=== PATIENT | male | born 1960 | race Two or more races ===

== ENCOUNTER 2017-07-16 00:10 | Emergency (ER) | payer SELFPAY ==
[2017-07-16 01:05] LABS: BASOPHILE ABSOLUTE 2.5 Th/cumm (0-0.2); EOSINOPHILE ABSOLUTE 0.1 Th/cmm (0.1-0.4); HEMOGLOBIN 10.6 gm/dL (12-16); LYMPHOCYTE ABSOLUTE 5.3 Th/cmm (1.5-3.0); MANUAL DIFF REQUIRED? YES; MEAN CORPUSCULAR HEMOGLOBIN 29.6 pg (26.0-30.0); MEAN CORPUSCULAR HGB CONC 34.1 pg (28.0-36.0); MEAN PLATELET VOLUME 8.9 fl; MONOCYTE ABSOLUTE 0.8 Th/cmm (0.3-1.0); NEUTROPHILE ABSOLUTE 1.3 Th/cmm (1.8-8.0); PLATELET COUNT 210 Th/cmm (150-400); RED BLOOD COUNT 3.56 Mil/cmm (4.30-5.70); RED CELL DISTRIBUTION WIDTH 18.4 % (11.5-20.0)
[2017-07-16 01:12] LABS: AMPHETAMINE URINE NEGATIVE (NEGATIVE); BARBITURATES URINE NEGATIVE (NEGATIVE); BENZODIAZEPINES QUAL URINE NEGATIVE (NEGATIVE); CANNABINOID THC NEGATIVE (NEGATIVE); COCAINE METABOLITE QUAL URINE NEGATIVE (NEGATIVE); METHADONE URINE NEGATIVE (NEGATIVE); METHAMPHETAMINES QUAL URINE NEGATIVE (NEGATIVE); OPIATES (MORPHINE) QUAL. URINE NEGATIVE (NEGATIVE); PHENCYCLIDINE (PCP) URINE NEGATIVE (NEGATIVE); TRICYCLICS (TCA) QUAL. URINE NEGATIVE (NEGATIVE)
[2017-07-16 01:16] LABS: ANION GAP 14.6 (7.0-16.0); BUN - UREA NITROGEN 7 mg/dL (7-25); CALCIUM SERUM 8.9 mg/dL (8.6-10.3); CARBON DIOXIDE 21.8 mEq/L (21.0-31.0); CHLORIDE 103 mEq/L (98-107); CREATININE - SERUM 0.4 mg/dL (0.7-1.3); GFR AFRICAN-AMERICAN > 60.0 ml/min (>90); GFR NON AFRICAN-AMERICAN > 60.0 ml/min; GLUCOSE 99 mg/dL (70-105); POTASSIUM SERUM 3.4 mEq/L (3.5-5.1); SODIUM SERUM 136 mEq/L (136-145)
--- NOTE | 2017-07-16 01:19 | ED Physician Chart ---
ED Chief Complaint/HPI - Patient Information Date Seen:: 07/16/17 Time Seen:: 00:25 Chief Complaint:: LEFT RIB PAIN History of Present Illness:: THIS IS A 56 YO ALCOHOLIC MALE WHO STATES THAT HE FELL FOUR DAYS AGO AND NOW IS CONCERNED ABOUT SOME RIB PAIN ON HIS LEFT SIDE. THE PATIENT DENIES ANY OTHER INJURIES. HE SMELLS LIKE ALCOHOL AND IS UNKEPT. HE DENIES LOC, HEADACHE, SOB, NAUSEA AND CHEST PAIN. Allergies:: Allergies Allergy/AdvReac Type Severity Reaction Status Date / Time No Known Allergies Allergy Verified 07/16/17 00:28 Vitals:: Vital Signs - 8 hr 07/16/17 00:10 Temp 98.5 F HR 100 RR 18 BP 125/68 O2 Sat % 100 Historian:: Patient Review:: Nurse's Note Reviewed ED Review of Systems - Review of Systems General/Constitutional: No fever, No chills, No weight loss, No weakness, No diaphoresis, No edema, No loss of appetite Skin: No skin lesions, No rash, No bruising Head: No headache, No light-headedness Eyes: No loss of vision, No pain, No diplopia ENT: No earache, No nasal drainage, No sore throat, No tinnitus Neck: No neck pain, No swelling, No thyromegaly, No stiffness, No mass noted Cardio Vascular: No chest pain, No palpitations, No PND, No orthopnea, No edema Pulmonary: No SOB, No cough, No sputum, No wheezing GI: No nausea, No vomiting, No diarrhea, No pain, No melena, No hematochezia, No constipation, No hematemesis G/U: No dysuria, No frequency, No hematuria Musculoskeletal: No bone or joint pain, No back pain, No muscle pain, Other ( LEFT CHEST WALL TENDERNESS ON THE LEFT SEVEN RIB AREA, NO PAIN ON DEEP BREATHING.) Endocrine: No polyuria, No polydipsia Psychiatric: No prior psych history, No depression, No anxiety, No suicidal ideation Hematopoietic: No bruising, No lymphadenopathy Allergic/Immuno: No urticaria, No angioedema Neurological: No syncope, No focal symptoms, No weakness, No paresthesia, No headache, No seizure, No dizziness, No confusion, No vertigo ED Past Medical History - Past Medical History Family History: None Social History: Non Smoker, Alcohol, No Drug Use, Homeless Surgical History: None Psychiatricy History: None Medication: Reviewed Family Medical History - Family Member Mother History Unknown: Yes ED Physical Exam - Physical Examination General/Constitutional: Awake, Well-developed, well-nourished, Alert, No distress, GCS 15, Non-toxic appearing (APPEARS TOXIC FROM ALCOHOL), Ambulatory Head: Atraumatic Eyes: Lids, conjuctiva normal, PERRL, EOMI Skin: Nl inspection, No rash, No skin lesions, No ecchymosis, Well hydrated, No lymphadenopathy ENMT: External ears, nose nl, Nasal exam nl, Lips, teeth, gums nl Neck: Nontender, Full ROM w/o pain, No JVD, No nuchal rigidity, No bruit, No mass, No stridor Respiratory: Nl effort/Exclusion, Clear to Auscultation, No Wheeze/Rhonchi/Rales Cardio Vascular: RRR, No murmur, gallop, rubs, NL S1 S2 Other Cardio Vascular comments:: TENDERNESS IN THE LEFT 7TH RIB AREA WITH GOOD AIR MOVEMENT WITHOUT PAIN. GI: No tenderness/rebounding/guarding, No organomegaly, No hernia, Normal BS's, Nondistended, No mass/bruits, No McBurney tenderness : No CVA tenderness Extremities: No tenderness or effusion, Full ROM, normal strength in all extremities, No edema, Normal digits & nails Neuro/Psych: Alert/oriented, DTR's symmetric, Normal sensory exam, Normal motor strength, Judgement/insight normal, Mood normal, Normal gait, No focal deficits Misc: Normal back, No paraspinal tenderness ED Labs/Radiology/EKG Results - Lab Results Results: Laboratory Tests 07/16/17 07/16/17 00:45 00:45 WBC 10.0 RBC 3.56 L Hgb 10.6 L Hct 31.0 L MCV 87.0 MCH 29.6 MCHC Differential 34.1 RDW 18.4 Plt Count 210 MPV 8.9 Urine Opiates Screen NEGATIVE Urine Methadone Screen NEGATIVE Ur Barbiturates Screen NEGATIVE Ur Tricyclics Screen NEGATIVE Ur Phencyclidine Scrn NEGATIVE Amphetamines Screen NEGATIVE U Methamphetamines Scrn NEGATIVE U Benzodiazepines Scrn NEGATIVE U Cocaine Metab Screen NEGATIVE U Cannabinoids Screen NEGATIVE ED Assessment - Assessment General Assessment: CONTUSION OF THE LEFT CHEST WALL ED Septic Shock - . Is Septic Shock (SBP<90, OR Lactate>4 mmol\L) present?: No - <6hrs of presentation: Vital Signs: Vital Signs - 8 hr 07/16/17 00:10 Temp 98.5 F HR 100 RR 18 BP 125/68 O2 Sat % 100 ED Reassessment (Disposition) - Diagnosis Diagnosis:: CONTUSION OF THE LEFT CHEST WALL ALCOHOL INTOXICATION - Aftercare/Follow up Instructions Aftercare/Follow-Up Instructions:: Counseled pt regarding lab results/diagnosis & need follow up, Refer to Discharge Instructions, Counseled pt & family regarding lab results/diagnosis & need follow up - Patient Disposition Discharge/Transfer:: Home Condition at Disposition:: Improved ED Discharge Plan - Patient Disposition Admit/Discharge/Transfer: PT DISCHARGED HOME Condition at Disposition: Improved
[2017-07-16] MEDS ORDERED: Potassium Chloride 20 mEq ER Tab PO ONE (01:24)
[2017-07-16] MEDS ORDERED: Potassium Chloride Elixir 20 mEq /15 mL UDC ONE (01:28)
[2017-07-16] MEDS: Potassium Chloride Elixir 20 mEq /15 mL UDC PO ONE (01:28)
[2017-07-16 01:30] LABS: BAND NEUTROPHILE 1 % (0-10); LYMPHOCYTE 54 % (20-50); MONOCYTE 6 % (2-10); NEUTROPHILS 34 % (40-80); TOTAL CELLS COUNTED 100
[2017-07-16 01:31] LABS: ATYPICAL LYMPH 1 %; BASOPHIL 1 % (0-3); EOSINOPHIL 3 % (0-5); HYPOCHROMIA 1+; PLATELET ESTIMATE ADEQUATE (NORMAL)
[2017-07-16 01:32] LABS: ANISOCYTOSIS 1+
== END 2017-07-16 02:25 | disposition home or self-care (01) ==
LOC: ER 00:10
DX: S20.212A Contusion of left front wall of thorax, initial encounter (principal); Z59.0 Homelessness; X58.XXXA Exposure to other specified factors, initial encounter; Y93.89 Activity, other specified; Y92.89 Other specified places as the place of occurrence of the external cause; Y99.8 Other external cause status
CPT/HCPCS: 36415-UA; 80048-TC; 80307; 80320-TC; 85007-TC; 85027-TC; 93005

== ENCOUNTER 2018-06-23 16:25 | Inpatient (IN) | payer SELFPAY ==
[2018-06-23 16:51] LABS: ALLEN TEST Positive; pH 7.32 (7.35-7.45)
--- NOTE | 2018-06-23 16:54 | ED Physician Chart ---
ED Chief Complaint/HPI - Patient Information Date Seen:: 06/23/18 Time Seen:: 16:35 Chief Complaint:: acute shortness of breath History of Present Illness:: this is a chronic alcoholic bib ems on bi-pap with severe ascites and distended abdomen. Allergies:: Allergies Allergy/AdvReac Type Severity Reaction Status Date / Time No Known Allergies Allergy Verified 06/23/18 16:42 Vitals:: Vital Signs - 8 hr 06/23/18 16:33 Temp 97 F HR 92 RR 22 BP 133/79 O2 Sat % 100 Historian:: Patient, EMS, Medical Records Review:: Nurse's Note Reviewed, Old Chart Reviewed, EMS run form Reviewed ED Review of Systems - Review of Systems General/Constitutional: No fever, No chills, Weight loss, Weakness, No diaphoresis, Edema, No loss of appetite Skin: Skin lesions, No rash, No bruising Head: No headache, No light-headedness Eyes: No loss of vision, No pain, No diplopia ENT: No earache, No nasal drainage, No sore throat, No tinnitus Neck: No neck pain, No swelling, No thyromegaly, No stiffness, No mass noted Cardio Vascular: No chest pain, No palpitations, No PND, No orthopnea, No edema Pulmonary: SOB, No cough, No sputum, No wheezing GI: No nausea, No vomiting, No diarrhea, No pain, No melena, No hematochezia, No constipation, No hematemesis G/U: No dysuria, No frequency, No hematuria Musculoskeletal: No bone or joint pain, No back pain, No muscle pain Endocrine: No polyuria, No polydipsia Psychiatric: No prior psych history, No depression, No anxiety, No suicidal ideation Hematopoietic: No bruising, No lymphadenopathy Allergic/Immuno: No urticaria, No angioedema Neurological: No syncope, No focal symptoms, No weakness, No paresthesia, No headache, No seizure, No dizziness, No confusion, No vertigo ED Past Medical History - Past Medical History Obtainable: Yes Past Medical History: HTN, Other (liver failure secondary to alcohol abuse) Family History: None Social History: Non Smoker, Alcohol, No Drug Use, Homeless Surgical History: None Medication: Reviewed Family Medical History - Family Member Mother History Unknown: Yes ED Physical Exam - Physical Examination General/Constitutional: Awake, Well-developed, well-nourished, Alert, No distress, GCS 15, Non-toxic appearing, Ambulatory Other Gen/Cons comments:: in respiratory distress using his extra respiratory muscles to breath. Head: Atraumatic Eyes: Lids, conjuctiva normal, PERRL, EOMI Skin: Nl inspection, No rash, No skin lesions, No ecchymosis, Well hydrated, No lymphadenopathy ENMT: External ears, nose nl, Nasal exam nl, Lips, teeth, gums nl Neck: Nontender, Full ROM w/o pain, No nuchal rigidity, No bruit, No mass, No stridor Other Neck comments:: jvd at 30 degrees Respiratory: Nl effort/Exclusion, Clear to Auscultation, No Wheeze/Rhonchi/Rales Cardio Vascular: RRR, No murmur, gallop, rubs, NL S1 S2 GI: No tenderness/rebounding/guarding, No organomegaly, No hernia, Normal BS's, Nondistended (severely distended abdomen pain), No mass/bruits, No McBurney tenderness : No CVA tenderness Extremities: No tenderness or effusion, Full ROM, normal strength in all extremities, No edema, Normal digits & nails Other Extremities comments:: bilateral edema with brauny induration left foot has an ulcer on it with edema Neuro/Psych: Alert/oriented, DTR's symmetric, Normal sensory exam, Normal motor strength, Judgement/insight normal, Mood normal, Normal gait, No focal deficits Misc: Normal back, No paraspinal tenderness ED Labs/Radiology/EKG Results - Lab Results Results: Abnormal Lab Results 06/23/18 06/23/18 06/23/18 16:30 17:00 17:00 WBC 3.5 L RBC 3.16 L Hgb 10.0 L Hct 30.1 L MCV 95.1 MCH 31.7 H MCHC Differential 33.4 RDW 14.7 Plt Count 42 L MPV 9.4 Add Manual Diff YES PT 16.0 H INR 1.57 H PTT (Actin FS) 42.0 H Specimen Source Arterial Sample Site RRA pH 7.32 L pCO2 54.0 H pO2 248.0 H HCO3 25.6 Base Excess 0.8 O2 Saturation 100.0 Vasquez Test Positive Vent Rate NA Inspired O2 100% Tidal Volume NA PEEP NA Pressure (ins/psv/peep) NA Critical Value FABIOLA RT Sodium Potassium Chloride Carbon Dioxide Anion Gap BUN Creatinine Est GFR ( Amer) Est GFR (Non-Af Amer) BUN/Creatinine Ratio Glucose Whole Bld Lactic Acid Calcium Total Bilirubin AST ALT Alkaline Phosphatase Ammonia Troponin I Total Protein Albumin Globulin Albumin/Globulin Ratio Amylase Lipase 06/23/18 06/23/18 06/23/18 17:00 17:00 17:00 WBC RBC Hgb Hct MCV MCH MCHC Differential RDW Plt Count MPV Add Manual Diff PT INR PTT (Actin FS) Specimen Source Sample Site pH pCO2 pO2 HCO3 Base Excess O2 Saturation Vasquez Test Vent Rate Inspired O2 Tidal Volume PEEP Pressure (ins/psv/peep) Critical Value Sodium 132 L Potassium 3.9 Chloride 101 Carbon Dioxide 25.3 Anion Gap 9.6 BUN 28 H Creatinine 0.6 L Est GFR ( Amer) > 60.0 Est GFR (Non-Af Amer) > 60.0 BUN/Creatinine Ratio 46.7 Glucose 79 Whole Bld Lactic Acid Calcium 8.9 Total Bilirubin 2.7 H AST 65 H ALT 26 Alkaline Phosphatase 108 H Ammonia 115 H Troponin I 0.04 Total Protein 7.0 Albumin 1.9 L Globulin 5.1 Albumin/Globulin Ratio 0.4 L Amylase 125 H Lipase 86 H 06/23/18 17:00 WBC RBC Hgb Hct MCV MCH MCHC Differential RDW Plt Count MPV Add Manual Diff PT INR PTT (Actin FS) Specimen Source Sample Site pH pCO2 pO2 HCO3 Base Excess O2 Saturation Vasquez Test Vent Rate Inspired O2 Tidal Volume PEEP Pressure (ins/psv/peep) Critical Value Sodium Potassium Chloride Carbon Dioxide Anion Gap BUN Creatinine Est GFR ( Amer) Est GFR (Non-Af Amer) BUN/Creatinine Ratio Glucose Whole Bld Lactic Acid 1.62 Calcium Total Bilirubin AST ALT Alkaline Phosphatase Ammonia Troponin I Total Protein Albumin Globulin Albumin/Globulin Ratio Amylase Lipase - EKG Interpretations EKG Time:: 16:43 Rate & Rhythm: rate=91, sinus [place]: right axis ED Assessment - Assessment General Assessment: liver failure ED Septic Shock - . Is Septic Shock (SBP<90, OR Lactate>4 mmol\L) present?: No - <6hrs of presentation: Vital Signs: Vital Signs - 8 hr 06/23/18 16:33 Temp 97 F HR 92 RR 22 BP 133/79 O2 Sat % 100 ED Reassessment (Disposition) - Reassessment Reassessment Condition:: Improved - Diagnosis Diagnosis:: liver failure ascites - Patient Disposition Discharge/Transfer:: Acute Care w/in this hosp Admitted to:: Telemetry Admitting Medical Physician:: Juwan Sorensen Condition at Disposition:: Improved
[2018-06-23 17:20] LABS: HEMATOCRIT 30.1 % (41.0-60); MEAN CELL VOLUME 95.1 fl (80-99); MEAN CORPUSCULAR HEMOGLOBIN 31.7 pg (26.0-30.0); MEAN CORPUSCULAR HGB CONC 33.4 pg (28.0-36.0); MEAN PLATELET VOLUME 9.4 fl; PLATELET COUNT 42 Th/cmm (150-400); RED BLOOD COUNT 3.16 Mil/cmm (4.30-5.70); RED CELL DISTRIBUTION WIDTH 14.7 % (11.5-20.0)
[2018-06-23 17:23] LABS: WHITE BLOOD COUNT 3.5 Th/cmm (4.8-10.8)
[2018-06-23 17:38] LABS: INR 1.57 (0.5-1.4)
[2018-06-23 17:40] LABS: ALB/GLOB RATIO 0.4 (1.0-1.8); ALBUMIN 1.9 gm/dL (4.2-5.5); ALKALINE PHOSPHATASE 108 U/L (34-104); AMYLASE SERUM 125 U/L (29-103); ANION GAP 9.6 (7.0-16.0); BILIRUBIN,TOTAL 2.7 mg/dL (0.3-1.0); BUN - UREA NITROGEN 28 mg/dL (7-25); CALCIUM SERUM 8.9 mg/dL (8.6-10.3); CARBON DIOXIDE 25.3 mEq/L (21.0-31.0); CHLORIDE 101 mEq/L (98-107); CREATININE - SERUM 0.6 mg/dL (0.7-1.3); GFR AFRICAN-AMERICAN > 60.0 ml/min (>90); GFR NON AFRICAN-AMERICAN > 60.0 ml/min; GLUCOSE 79 mg/dL (70-105); LIPASE 86 U/L (11-82); POTASSIUM SERUM 3.9 mEq/L (3.5-5.1); SGOT 65 U/L (13-39); SGPT/ALT 26 U/L (7-52); SODIUM SERUM 132 mEq/L (136-145)
[2018-06-23 18:34] LABS: BAND NEUTROPHILE 0 % (0-10); BASOPHIL 0 % (0-3); EOSINOPHIL 1 % (0-5); LYMPHOCYTE 28 % (20-50); MONOCYTE 6 % (2-10); NEUTROPHILS 75 % (40-80)
[2018-06-23 18:35] LABS: PLATELET ESTIMATE DECREASED PLATELETS (NORMAL)
[2018-06-23] MEDS ORDERED: Maalox 30 mL Cup PO PRN (18:42)
[2018-06-23] MEDS ORDERED: guaiFENesin 200 MG/10 ML UDC PO PRN (18:42)
[2018-06-23] MEDS: Albuterol Nebulizer 2.5mg/3mL HHN SCH (19:54)
[2018-06-23] MEDS: Ipratropium Neb 0.5 mg/2.5 mL UD HHN SCH (19:54)
[2018-06-23 21:58] VITALS: BP 111/67
--- NOTE | 2018-06-24 00:15 | History & Physical ---
ADMIT DATE: 06/23/2018 CHIEF COMPLAINT: Shortness of breath. HISTORY OF PRESENT ILLNESS: This is a 57-year-old male with history of hypertension, alcohol abuse, cirrhosis, admitted from home secondary to being in respiratory distress with shortness of breath. The patient was evaluated in the ER and admitted for further management. PAST MEDICAL HISTORY: As mentioned in the history of present illness. PAST SURGICAL HISTORY: Denies surgeries in the past. ALLERGIES: No known drug allergies. MEDICATIONS: None from home. FAMILY HISTORY: Denies diabetes or coronary artery disease. SOCIAL HISTORY: The patient is a chronic smoker and drinker. No intravenous drug use. REVIEW OF SYSTEMS: GENERAL: Complains not feeling well. HEENT: No blurred vision or pain. LUNGS: No diagnosis of COPD or asthma. ABDOMEN: The patient with history of cirrhosis and ascites. GENITOURINARY: Denies increased frequency or dysuria. NEUROLOGIC: No headache, seizure. Denies delirium tremens. PSYCHIATRIC: The patient with depression. PHYSICAL EXAMINATION: VITAL SIGNS: Blood pressure 132/79, respirations 22, pulse 92, temperature 97.8. GENERAL: Elderly male, appears chronically ill. NECK: Supple. No mass. LUNGS: Equal breath sounds, few rhonchi. HEART: Regular rate and rhythm without appreciable murmur. ABDOMEN: Soft, globular, distended. Positive fluid wave. EXTREMITIES: Positive excoriation atrophy. NEUROLOGIC: Limited. LABORATORY DATA: WBC 24, hemoglobin 10, platelets 42. INR 1.5. Sodium 132, potassium 3.9, BUN 20, creatinine 0.6, albumin 1.9, amylase and lipase 124 and 186. ASSESSMENT AND PLAN: Increasing shortness of breath, acute respiratory failure, ____, ascites, anemia, severe protein-calorie malnutrition, elevated amylase and lipase, and pancytopenia. We will monitor the patient's hemoglobin and hematocrit. We will transfuse as needed. We will start the patient on diuretic. We will refer the patient to Pulmonary. We will admit the patient to ICU. The patient was refusing BiPAP, use as needed. We will continue to monitor the patient closely. JOB# [id number]
[2018-06-24] MEDS: Albuterol Nebulizer 2.5mg/3mL HHN SCH (06:35)
[2018-06-24] MEDS: Ipratropium Neb 0.5 mg/2.5 mL UD HHN SCH (06:35)
[2018-06-24 07:32] LABS: HEMOGLOBIN 10.2 gm/dL (12-16); MEAN PLATELET VOLUME 9.9 fl
[2018-06-24 07:50] LABS: HEMATOCRIT 30.8 % (41.0-60); MEAN CELL VOLUME 94.8 fl (80-99); MEAN CORPUSCULAR HEMOGLOBIN 91.3 pg (26.0-30.0); PLATELET COUNT 42 Th/cmm (150-400); RED BLOOD COUNT 3.25 Mil/cmm (4.30-5.70); RED CELL DISTRIBUTION WIDTH 14.8 % (11.5-20.0); WHITE BLOOD COUNT 3.2 Th/cmm (4.8-10.8)
[2018-06-24 08:10] LABS: ANION GAP 11.2 (7.0-16.0); BUN - UREA NITROGEN 32 mg/dL (7-25); CALCIUM SERUM 9.1 mg/dL (8.6-10.3); CARBON DIOXIDE 25.4 mEq/L (21.0-31.0); CHLORIDE 100 mEq/L (98-107); CREATININE - SERUM 0.7 mg/dL (0.7-1.3); GFR AFRICAN-AMERICAN > 60.0 ml/min (>90); GFR NON AFRICAN-AMERICAN > 60.0 ml/min; GLUCOSE 100 mg/dL (70-105); POTASSIUM SERUM 4.6 mEq/L (3.5-5.1); SODIUM SERUM 132 mEq/L (136-145)
[2018-06-24 08:16] LABS: BAND NEUTROPHILE 0 % (0-10); BASOPHIL 0 % (0-3); EOSINOPHIL 0 % (0-5); LYMPHOCYTE 9 % (20-50); MONOCYTE 1 % (2-10); NEUTROPHILS 90 % (40-80)
[2018-06-24 08:17] LABS: PLATELET ESTIMATE DECREASED PLATELETS (NORMAL)
[2018-06-24] MEDS ORDERED: Albumin 25% 25gm/100mL 25 GM/100 ML BTL IV ONE (08:37)
--- NOTE | 2018-06-24 08:41 | Internal Medicine Prog Note ---
Internal Medicine Subjective - Subjective Patient seen and examined:: with staff, chart reviewed Patient is:: asleep, non-interactive, eyes closed, in bed, confused, congested Patient Complaints of:: bloated, weight gain Per staff patient has:: no adverse event, poor appetite, noncompliant Internal Medicine Objective - Results Result Diagrams: 06/24/18 07:04 06/24/18 07:04 Recent Labs: Laboratory Last Values WBC 3.2 Th/cmm (4.8-10.8) L 06/24/18 07:04 RBC 3.25 Mil/cmm (4.30-5.70) L 06/24/18 07:04 Hgb 10.2 gm/dL (12-16) L 06/24/18 07:04 Hct 30.8 % (41.0-60) L 06/24/18 07:04 MCV 94.8 fl (80-99) 06/24/18 07:04 MCH 91.3 pg (26.0-30.0) H 06/24/18 07:04 MCHC Differential 33.0 pg (28.0-36.0) 06/24/18 07:04 RDW 14.8 % (11.5-20.0) 06/24/18 07:04 Plt Count 42 Th/cmm (150-400) L 06/24/18 07:04 MPV 9.9 fl 06/24/18 07:04 Add Manual Diff YES 06/24/18 07:04 Band Neutrophils % 0 % (0-10) 06/24/18 07:04 Neutrophils (Manual) 90 % (40-80) H 06/24/18 07:04 Lymphocytes 9 % (20-50) L 06/24/18 07:04 Monocytes 1 % (2-10) L 06/24/18 07:04 Eosinophils 0 % (0-5) 06/24/18 07:04 Basophils 0 % (0-3) 06/24/18 07:04 Platelet Estimate DECREASED PLATELETS (NORMAL) 06/24/18 07:04 PT 16.0 SECONDS (9.5-11.5) H 06/23/18 17:00 INR 1.57 (0.5-1.4) H 06/23/18 17:00 PTT (Actin FS) 42.0 SECONDS (26.0-38.0) H 06/23/18 17:00 Specimen Source Arterial 06/23/18 16:30 Sample Site RRA 06/23/18 16:30 pH 7.32 (7.35-7.45) L 06/23/18 16:30 pCO2 54.0 mmHg (35.0-45.0) H 06/23/18 16:30 pO2 248.0 mmHg (80.0-100.0) H 06/23/18 16:30 HCO3 25.6 mEq/L (20.0-26.0) 06/23/18 16:30 Base Excess 0.8 mEq/L (-3.0-3.0) 06/23/18 16:30 O2 Saturation 100.0 % (92.0-100.0) 06/23/18 16:30 Vasquez Test Positive 06/23/18 16:30 Vent Rate NA 06/23/18 16:30 Inspired O2 100% 06/23/18 16:30 Tidal Volume NA 06/23/18 16:30 PEEP NA 06/23/18 16:30 Pressure (ins/psv/peep) NA 06/23/18 16:30 Critical Value FABIOLA RT 06/23/18 16:30 Sodium 132 mEq/L (136-145) L 06/24/18 07:04 Potassium 4.6 mEq/L (3.5-5.1) 06/24/18 07:04 Chloride 100 mEq/L (98-107) 06/24/18 07:04 Carbon Dioxide 25.4 mEq/L (21.0-31.0) 06/24/18 07:04 Anion Gap 11.2 (7.0-16.0) 06/24/18 07:04 BUN 32 mg/dL (7-25) H 06/24/18 07:04 Creatinine 0.7 mg/dL (0.7-1.3) 06/24/18 07:04 Est GFR ( Amer) > 60.0 ml/min (>90) 06/24/18 07:04 Est GFR (Non-Af Amer) > 60.0 ml/min 06/24/18 07:04 BUN/Creatinine Ratio 45.7 06/24/18 07:04 Glucose 100 mg/dL (70-105) 06/24/18 07:04 Whole Bld Lactic Acid 1.62 mmol/L (0.60-1.99) 06/23/18 17:00 Calcium 9.1 mg/dL (8.6-10.3) 06/24/18 07:04 Total Bilirubin 2.7 mg/dL (0.3-1.0) H 06/23/18 17:00 AST 65 U/L (13-39) H 06/23/18 17:00 ALT 26 U/L (7-52) 06/23/18 17:00 Alkaline Phosphatase 108 U/L (34-104) H 06/23/18 17:00 Ammonia 115 umol/L (16-53) H 06/23/18 17:00 Troponin I 0.04 ng/mL (0.01-0.05) 06/23/18 17:00 Total Protein 7.0 gm/dL (6.0-8.3) 06/23/18 17:00 Albumin 1.9 gm/dL (4.2-5.5) L 06/23/18 17:00 Globulin 5.1 gm/dL 06/23/18 17:00 Albumin/Globulin Ratio 0.4 (1.0-1.8) L 06/23/18 17:00 Amylase 125 U/L (29-103) H 06/23/18 17:00 Lipase 86 U/L (11-82) H 06/23/18 17:00 TSH 8.16 uIU/ml (0.34-5.60) H 06/23/18 17:00 - Physical Exam Vitals and I&O: Vital Signs Temp 96.0 F 06/24/18 06:00 Pulse 87 06/24/18 06:35 Resp 28 06/24/18 06:35 BP 93/47 06/24/18 06:00 Pulse Ox 92 06/24/18 06:35 Intake & Output 06/23/18 06/24/18 06/24/18 18:59 06:59 18:59 Intake Total 180 Balance 180 Weight (lbs) 63.503 kg 71.668 kg Intake: Oral 180 Other: # Voids 0 # Bowel Movements 0 Weight Source Estimated Bedscale Active Medications: Current Medications Acetaminophen (Tylenol) 650 mg PO Q4H PRN PRN Reason: Pain Or Fever above 101 Stop: 08/22/18 18:41 Al Hydrox/Mg Hydrox/Simethicone (Maalox) 30 ml PO Q6H PRN PRN Reason: Dyspepsia Stop: 08/22/18 18:41 Last Admin: 06/24/18 01:13 Dose: 30 ml Albuterol/Ipratropium (Duoneb Neb) 3 ml HHN QIDRT [facility] Stop: 08/23/18 10:59 Furosemide (Lasix) 40 mg IVP BID [facility] Stop: 08/23/18 08:59 Guaifenesin (Robitussin) 200 mg PO Q4HR PRN PRN Reason: Cough or Congestion Stop: 08/22/18 18:41 Multivitamins/Minerals 10 ml/Thiamine HCl 100 mg/ Magnesium Sulfate 2 gm/ Folic Acid 1 mg / Sodium Chloride 1,015.2 mls @ 100 mls/hr IV Q24H [facility] Stop: 08/23/18 08:44 Levofloxacin (Levaquin Pb) 500 mg in 100 mls @ 100 mls/hr IV Q24HR [facility] Stop: 08/23/18 08:44 Metronidazole (Flagyl) 500 mg in 100 mls @ 100 mls/hr IV Q8HR [facility] Stop: 08/23/18 12:59 Albumin Human (Albuminar 25%) 25 gm in 100 mls @ 50 mls/hr IV X1 ONE Stop: 06/24/18 10:36 Levothyroxine Sodium (Synthroid) 0.05 mg PO QDAC [facility] Stop: 08/23/18 07:29 Ondansetron HCl (Zofran) 4 mg IV Q8H PRN PRN Reason: Nausea / Vomiting Stop: 08/22/18 18:41 Pantoprazole Sodium (Protonix) 40 mg PO BID [facility] Stop: 08/23/18 08:59 Zolpidem Tartrate (Ambien) 10 mg PO HS PRN PRN Reason: Insomnia Stop: 08/22/18 18:41 Last Admin: 06/24/18 01:13 Dose: 10 mg General: lethargic, disheveled, bilateral temporal wasting, appears older HEENT: NC/AT, PERRLA Neck: Supple Lungs: congested, rales, ronchi Cardiovascular: RRR, Normal S1, Normal S2, without murmur Abdomen: soft, globular, distended, positive bowel sound, hepatomegaly, + fluid wave Extremities: edema, excoriation Neurological: lethargic, disorganized Internal Medicine Assmt/Plan - Assessment Assessment: ASSESSMENT Increasing shortness of breath, acute respiratory failure, ___cirrhosis_, ascites, anemia, severe protein-calorie malnutrition, elevated amylase and lipase, and pancytopenia. - Plan Plan: PLAN: We will monitor the patient's hemoglobin and hematocrit. We will transfuse as needed. We will start the patient on diuretic. We will refer the patient to Pulmonary. We will admit the patient to ICU. The patient was refusing BiPAP, use as needed. We will continue to monitor the patient closely. for abd u/s, diagnostic and therapeutic paracentesis will give albumin
[2018-06-24] MEDS: Levothyroxine 0.05 Mg Tab PO SCH (09:00)
[2018-06-24] MEDS: Pantoprazole 40 mg EC Tab PO SCH ×2 (09:15→17:52)
--- NOTE | 2018-06-24 10:16 | Diagnostic Imaging Report ---
CT scan abdomen and pelvis without intravenous contrast HISTORY: Abdominal distention Total DLP equals 655 CTDI equals 12.3 Axial sections were obtained from the xiphoid process down to the pubic symphysis. Limited sections through the lower chest demonstrate bilateral pleural effusions (left greater than right). Parenchymal density noted in the right and left lower lobes most likely related to atelectasis. Pneumonia cannot be excluded. There is massive ascites throughout the abdomen and pelvis. The liver exhibits diminished size. No focal lesions. Changes suggest cirrhosis. Spleen appears normal. No focal abnormality seen within the pancreas. No focal renal lesions. No hydronephrosis. No abnormal masses seen within the pelvis. IMPRESSION: 1. Massive ascites 2. Diminished hepatic size. Findings are consistent with cirrhosis. 3. Bilateral pleural effusions along with parenchymal changes within the lower lobes most likely associated with atelectasis.
[2018-06-24] MEDS: Albuterol/Ipratropium Neb 3 ML AERS HHN SCH ×3 (10:26→18:48)
[2018-06-24] MEDS: Levofloxacin 500mg/100mL 500 MG/100 ML BAG IV SCH (11:07)
[2018-06-24 12:46] LABS: ALLEN TEST Positive; pH 7.12 (7.35-7.45)
[2018-06-24] MEDS: Multivitamin Inj 10 ML, Thiamine HCL 100 MG, Magnesium Sulfate 2 GM, Folic Acid 1 MG in... IV SCH (13:17)
[2018-06-24] MEDS: metroNIDAZOLE 500mg/NS 100mL 500 MG/100 ML BAG IV SCH ×2 (13:28→20:55)
[2018-06-24] MEDS ORDERED: Sodium Bicarbonate 8.4% 50mEq PFS IVP ONE ×2 (13:36)
[2018-06-24 13:49] LABS: pH 7.27 (7.35-7.45)
[2018-06-24 13:50] LABS: ALLEN TEST Positive
--- NOTE | 2018-06-24 14:16 | Consultation ---
DATE OF CONSULTATION: 06/24/2018 REQUESTING PHYSICIAN: Dr. Sorensen. REASON FOR CONSULTATION: Liver cirrhosis and severe ascites with respiratory failure. Thank you for asking us to see this patient in consultation. HISTORY OF PRESENT ILLNESS: This is a 57-year-old male with history of alcohol abuse and cirrhosis who presents with respiratory distress and respiratory failure. The patient presented with large protuberant belly and ascites as well as right-sided pleural effusion and respiratory failure. The patient appears relatively confused, unable to give any history at this time. An ultrasound-guided abdominal paracentesis has been ordered and is currently pending. PAST MEDICAL HISTORY: Liver cirrhosis, ascites, alcohol abuse. ALLERGIES: None from home. FAMILY HISTORY: Denies any GI history. SOCIAL HISTORY: Chronic drinker and smoker. No IV drugs. FAMILY HISTORY: Noncontributory for GI disease. REVIEW OF SYSTEMS: Unable to obtain given the patient's current state. PHYSICAL EXAMINATION: VITAL SIGNS: Respiratory rate of 26, pulse of 92, temperature is 97.8, blood pressure is 132/78. GENERAL: He appears chronically ill. He has muscle wasting. He is tachypneic. HEENT: Normocephalic, atraumatic. PERRL positive. LUNGS: Clear bilaterally. No wheezes, rales or rhonchi. HEART: Regular rate and rhythm, normal S1, S2. ABDOMEN: Very protuberant and distended. He has a large amount of ascites fluid. EXTREMITIES: Show no lower extremity edema. PSYCHOLOGICAL: Alert, but not oriented. NEUROLOGIC: Grossly intact. LABORATORY DATA: INR 1.5. White count of 3, hemoglobin of 10 and creatinine is 0.6. 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 1. Large volume ascites. 2. 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 3. Decompensated liver cirrhosis, Child C. 4. Thrombocytopenia. 6. Coagulopathy. We would agree with large volume paracentesis and would recommend supplementation with albumin for anything larger than 4 liters. Would recommend checking cell count, total protein as well as lipase and albumin from the peritoneal fluid to rule out SBP. Likely, the patient has hepatic hydrothorax and performing large volume paracentesis will help and assist with the right-sided pleural effusion. Would definitely recommend not placing any chest tube in the right side of the lung, but as needed thoracentesis is reasonable. Recommend supportive care and management. No indication for EGD at this time unless the patient develops overt GI bleeding. Thank you for allowing us to participate in this patient's care. [facility]# [id number]
[2018-06-24 16:12] LABS: pH 7.37 (7.35-7.45)
[2018-06-24 16:13] LABS: ALLEN TEST Positive
[2018-06-24] MEDS: Lactulose 10 Gm/15 mL 30mL UDC PO SCH ×2 (17:57→20:35)
--- NOTE | 2018-06-24 22:32 | Consultation ---
DATE OF CONSULTATION: 06/24/[address] Sorensen. Thank you very much, Dr. Sorensen, for this consultation. HISTORY OF PRESENT ILLNESS: This is a 57-year-old male with history of alcoholic liver disease, liver cirrhosis, who presented with respiratory distress, altered level of consciousness. The patient apparently was doing okay on nasal cannula and the mask and then switched to BiPAP this morning secondary to elevated CO2 on the blood gas as patient seems to be altered, has ascites with drain tomorrow. He is not able to give any further history. I am not sure about the patient's history of smoking; but as per history he is a smoker as well. REVIEW OF SYSTEMS: Unable to obtain because of the patient's condition. PHYSICAL EXAMINATION: GENERAL: The patient was altered, in some distress with shortness of breath. VITAL SIGNS: Temperature 96.0, pulse 90, respiration is 23, blood pressure 105/63, saturation 93%, 100% BiPAP. HEENT: Atraumatic, normocephalic. Pupils are equal and reactive to light and accommodation. Ears, nose and throat normal. NECK: Supple. No JVD. CHEST: There are good breath sounds bilaterally. HEART: Regular rate and rhythm. ABDOMEN: Soft, distended, tenderness. EXTREMITIES: No edema. LABORATORY DATA: I do not see any chest x-ray at this time. His CT abdomen and pelvis, which showed massive ascites, liver cirrhosis, bilateral effusion. Labs are WBC is 3.2, hemoglobin 10.2, hematocrit 30.8, platelets is 42. Last ABGs: pH 7.12, pCO2 of 86, pO2 is 68, bicarbonate is 22, saturation 86%. IMPRESSION: This is a 57-year-old male with: 1. Respiratory failure. 2. ____ ascites, liver cirrhosis. 3. Chronic obstructive pulmonary disease exacerbation. PLAN: 1. We will give some bicarbonate. 2. The patient is not able to switch to ____. 3. Follow up ABGs and chest x-ray and we will add Solu-Medrol. Poor prognosis. The patient might need to be intubated at one point if not improved. Poor prognosis overall. JOB# [id number]
[2018-06-25] MEDS: Lactulose 10 Gm/15 mL 30mL UDC PO SCH ×2 (01:53→07:20)
[2018-06-25 04:53] LABS: MEAN CORPUSCULAR HGB CONC 33.4 pg (28.0-36.0)
[2018-06-25] MEDS: metroNIDAZOLE 500mg/NS 100mL 500 MG/100 ML BAG IV SCH ×3 (05:41→20:20)
[2018-06-25 05:54] LABS: HEMATOCRIT 29.8 % (41.0-60); MEAN CELL VOLUME 96.1 fl (80-99); MEAN CORPUSCULAR HEMOGLOBIN 32.1 pg (26.0-30.0); MEAN PLATELET VOLUME 10.1 fl; RED BLOOD COUNT 3.11 Mil/cmm (4.30-5.70)
[2018-06-25] MEDS ORDERED: Sodium Bicarbonate 8.4% 50mEq PFS IVP ONE ×3 (06:05→06:16)
[2018-06-25 06:09] LABS: WHITE BLOOD COUNT 10.1 Th/cmm (4.8-10.8)
[2018-06-25 06:10] LABS: PLATELET COUNT 34 Th/cmm (150-400)
[2018-06-25 06:18] LABS: pH 7.25 (7.35-7.45)
[2018-06-25 06:20] LABS: ALLEN TEST positive
[2018-06-25 06:23] LABS: ALB/GLOB RATIO 0.4 (1.0-1.8); ALKALINE PHOSPHATASE 86 U/L (34-104); ANION GAP 13.8 (7.0-16.0); BILIRUBIN,TOTAL 2.8 mg/dL (0.3-1.0); BUN - UREA NITROGEN 36 mg/dL (7-25); CALCIUM SERUM 8.8 mg/dL (8.6-10.3); CHLORIDE 101 mEq/L (98-107); GFR AFRICAN-AMERICAN > 60.0 ml/min (>90); GFR NON AFRICAN-AMERICAN > 60.0 ml/min; GLUCOSE 79 mg/dL (70-105); MAGNESIUM 2.5 mg/dL (1.9-2.7); POTASSIUM SERUM 4.8 mEq/L (3.5-5.1); SGOT 65 U/L (13-39); SGPT/ALT 24 U/L (7-52); SODIUM SERUM 135 mEq/L (136-145); TOTAL PROTEIN,SERUM 6.6 gm/dL (6.0-8.3)
[2018-06-25] MEDS: Levothyroxine 0.05 Mg Tab PO SCH (07:05)
[2018-06-25] MEDS: Albuterol/Ipratropium Neb 3 ML AERS HHN SCH ×4 (07:07→18:59)
--- NOTE | 2018-06-25 07:47 | Diagnostic Imaging Report ---
Portable chest x-ray Time: 1423 History: Shortness of breath Portable summation of the chest at 1423 reviewed, no prior exams available for comparison. The study demonstrates bilateral pneumonia with superimposed left pleural effusion. There is evidence of congestion. Bony thorax intact. Mediastinal structures midline. The heart is not enlarged. IMPRESSION: Cardiomegaly congestion. Bilateral infiltrates, left pleural effusion.
[2018-06-25 08:07] LABS: BAND NEUTROPHILE 2 % (0-10); LYMPHOCYTE 10 % (20-50); MONOCYTE 4 % (2-10); NEUTROPHILS 84 % (40-80)
--- NOTE | 2018-06-25 08:29 | Diagnostic Imaging Report ---
Exam: Portable summation of chest. HISTORY: Shortness of breath. Findings: Portable initially chest at 744 reviewed compared to the prior exam of 06/24/2018 demonstrates increase in bilateral pneumonia superimposed effusions. Mediastinal structures midline. Bony thorax intact. IMPRESSION: Increase in pulmonary consolidation pneumonia in the right lung. Bilateral infiltrate superimposed effusions. Follow-up gamma is recommended.
--- NOTE | 2018-06-25 08:58 | Diagnostic Imaging Report ---
Ultrasound abdomen HISTORY: Abdominal pain COMPARISON: CT abdomen and pelvis on 06/23/2018 Technique: Sonography of the abdomen was performed in multiple planes. FINDINGS: There is extensive amount of ascites. The liver demonstrates heterogeneous echotexture and measures 10.9 cm. Limited assessment of the liver demonstrates no obvious focal lesions. Gallbladder sludge is noted. Small gallstones cannot be excluded. The gallbladder wall is borderline prominent. The common bile duct measures 4 mm. Assessment of the pancreas is limited due to bowel gas. The right kidney measures 9.0 x 4 cm. The left kidney measures 9.6 x 5.8 cm. The renal margins are not well defined, however, no evidence of focal lesions or hydronephrosis. The spleen measures 7.1 cm. Bilateral pleural effusions are also noted. IMPRESSION: Extensive abdominal and pelvic ascites Heterogeneous liver with decreased size of may be due to underlying hepatocellular disease. Gallbladder sludge. Small gallstones cannot be excluded. Borderline prominent gallbladder wall is noted, nonspecific and may be due to patient's ascites. Bilateral pleural effusions.
[2018-06-25] MEDS: Levofloxacin 500mg/100mL 500 MG/100 ML BAG IV SCH (09:35)
[2018-06-25] MEDS: Multivitamin Inj 10 ML, Thiamine HCL 100 MG, Magnesium Sulfate 2 GM, Folic Acid 1 MG in... IV SCH (09:36)
[2018-06-25 10:01] LABS: pH 7.22 (7.35-7.45)
[2018-06-25 10:02] LABS: ALLEN TEST Positive
[2018-06-25 11:39] LABS: BF AMYLASE 35 U/L; BF TOTAL PROTEIN < 3.0 g/dL
[2018-06-25] MEDS: Pantoprazole 40 mg EC Tab PO SCH ×2 (12:02→17:00)
[2018-06-25] MEDS: Lactulose 10 Gm/15 mL 30mL UDC RC SCH ×3 (12:10→22:43)
--- NOTE | 2018-06-25 12:33 | Diagnostic Imaging Report ---
Ultrasound-guided paracentesis HISTORY: Ascites COMPARISON: CT abdomen and pelvis on 06/23/2018 ultrasound abdomen on 06/24/2018 FINDINGS: Informed consent was obtained and sterile techniques were utilized. Using ultrasound guidance, 4 liters of serous fluid was drained from the right lower quadrant. The patient tolerated the procedure with no immediate complications. IMPRESSION: Successful ultrasound guided paracentesis as above.
--- NOTE | 2018-06-25 12:45 | Internal Medicine Prog Note ---
Internal Medicine Subjective - Subjective Patient seen and examined:: with staff, chart reviewed, other (on pressor, on bipap, dnr) Patient is:: asleep, non-interactive, eyes closed, in bed, confused, congested Patient Complaints of:: bloated, weight gain Per staff patient has:: agitated, noncompliant, confused, other (ngt) Internal Medicine Objective - Results Result Diagrams: 06/25/18 04:10 06/25/18 04:10 Recent Labs: Laboratory Last Values WBC 10.1 Th/cmm (4.8-10.8) D 06/25/18 04:10 RBC 3.11 Mil/cmm (4.30-5.70) L 06/25/18 04:10 Hgb 10.0 gm/dL (12-16) L 06/25/18 04:10 Hct 29.8 % (41.0-60) L 06/25/18 04:10 MCV 96.1 fl (80-99) 06/25/18 04:10 MCH 32.1 pg (26.0-30.0) H 06/25/18 04:10 MCHC Differential 33.4 pg (28.0-36.0) 06/25/18 04:10 RDW 15.0 % (11.5-20.0) 06/25/18 04:10 Plt Count 34 Th/cmm (150-400) L 06/25/18 04:10 MPV 10.1 fl 06/25/18 04:10 Add Manual Diff YES 06/25/18 04:10 Band Neutrophils % 2 % (0-10) 06/25/18 04:10 Neutrophils (Manual) 84 % (40-80) H 06/25/18 04:10 Lymphocytes 10 % (20-50) L 06/25/18 04:10 Monocytes 4 % (2-10) 06/25/18 04:10 Eosinophils 0 % (0-5) 06/24/18 07:04 Basophils 0 % (0-3) 06/24/18 07:04 Platelet Estimate DECREASED PLATELETS (NORMAL) 06/24/18 07:04 PT 16.0 SECONDS (9.5-11.5) H 06/23/18 17:00 INR 1.57 (0.5-1.4) H 06/23/18 17:00 PTT (Actin FS) 42.0 SECONDS (26.0-38.0) H 06/23/18 17:00 Specimen Source Arterial 06/25/18 09:00 Sample Site Left Radial 06/25/18 09:00 pH 7.22 (7.35-7.45) L* 06/25/18 09:00 pCO2 75.0 mmHg (35.0-45.0) H* 06/25/18 09:00 pO2 53.0 mmHg (80.0-100.0) L 06/25/18 09:00 HCO3 25.3 mEq/L (20.0-26.0) 06/25/18 09:00 Base Excess 1.1 mEq/L (-3.0-3.0) 06/25/18 09:00 O2 Saturation 79.0 % (92.0-100.0) L 06/25/18 09:00 Vasquez Test Positive 06/25/18 09:00 Vent Rate 22 06/25/18 09:00 Inspired O2 100 06/25/18 09:00 Tidal Volume 450 06/25/18 09:00 PEEP 4 06/25/18 09:00 Pressure (ins/psv/peep) NA 06/25/18 09:00 Critical Value SH 06/25/18 09:00 Sodium 135 mEq/L (136-145) L 06/25/18 04:10 Potassium 4.8 mEq/L (3.5-5.1) 06/25/18 04:10 Chloride 101 mEq/L (98-107) 06/25/18 04:10 Carbon Dioxide 25.0 mEq/L (21.0-31.0) 06/25/18 04:10 Anion Gap 13.8 (7.0-16.0) 06/25/18 04:10 BUN 36 mg/dL (7-25) H 06/25/18 04:10 Creatinine 1.0 mg/dL (0.7-1.3) 06/25/18 04:10 Est GFR ( Amer) > 60.0 ml/min (>90) 06/25/18 04:10 Est GFR (Non-Af Amer) > 60.0 ml/min 06/25/18 04:10 BUN/Creatinine Ratio 36.0 06/25/18 04:10 Glucose 79 mg/dL (70-105) 06/25/18 04:10 Whole Bld Lactic Acid 1.62 mmol/L (0.60-1.99) 06/23/18 17:00 Calcium 8.8 mg/dL (8.6-10.3) 06/25/18 04:10 Magnesium 2.5 mg/dL (1.9-2.7) 06/25/18 04:10 Total Bilirubin 2.8 mg/dL (0.3-1.0) H 06/25/18 04:10 AST 65 U/L (13-39) H 06/25/18 04:10 ALT 24 U/L (7-52) 06/25/18 04:10 Alkaline Phosphatase 86 U/L (34-104) 06/25/18 04:10 Ammonia 100 umol/L (16-53) H 06/25/18 05:00 Troponin I 0.04 ng/mL (0.01-0.05) 06/23/18 17:00 B-Natriuretic Peptide 1210.0 pg/mL (5.0-100.0) H 06/25/18 04:10 Total Protein 6.6 gm/dL (6.0-8.3) 06/25/18 04:10 Albumin 2.0 gm/dL (4.2-5.5) L 06/25/18 04:10 Globulin 4.6 gm/dL 06/25/18 04:10 Albumin/Globulin Ratio 0.4 (1.0-1.8) L 06/25/18 04:10 Amylase 125 U/L (29-103) H 06/23/18 17:00 Lipase 86 U/L (11-82) H 06/23/18 17:00 TSH 8.16 uIU/ml (0.34-5.60) H 06/23/18 17:00 - Physical Exam Vitals and I&O: Vital Signs Temp 96.7 F 06/25/18 05:00 Pulse 76 06/25/18 06:45 Resp 25 06/25/18 11:14 BP 80/43 06/25/18 09:00 Pulse Ox 100 06/25/18 11:14 Intake & Output 06/24/18 06/25/18 06/25/18 18:59 06:59 18:59 Intake Total 200 1225.778 188.623 Balance 200 1225.778 188.623 Weight (lbs) 75.614 kg 75.614 kg Intake: Intake, IV Amount 200 1225.778 188.623 Levofloxacin 500mg/100mL 100 100 500 mg In 100 ml @ 100 mls/hr IV Q24HR [facility] Rx#: [id number] Multivitamin Inj 10 ml 1015.2 Thiamine HCL 100 mg Magnesium Sulfate 2 gm Folic Acid 1 mg In Sodium Chloride 0.9% 1,000 ml @ 100 mls/hr IV Q24H [facility] Rx#:[id number] Norepinephrine 8 mg In 10.578 88.623 Dextrose 5% 250 ml @ 8 MCG/MIN 15.48 mls/hr IV TITR PRN Rx#:[id number] metroNIDAZOLE 500mg/NS 100 200 100mL 500 mg In 100 ml @ 100 mls/hr IV Q8HR [facility] Rx #:[id number] Other: # Voids 1 1 Weight Source Bedscale Bedscale Active Medications: Current Medications Acetaminophen (Tylenol) 650 mg PO Q4H PRN PRN Reason: Pain Or Fever above 101 Stop: 08/22/18 18:41 Al Hydrox/Mg Hydrox/Simethicone (Maalox) 30 ml PO Q6H PRN PRN Reason: Dyspepsia Stop: 08/22/18 18:41 Last Admin: 06/24/18 01:13 Dose: 30 ml Albuterol/Ipratropium (Duoneb Neb) 3 ml HHN QIDRT [facility] Stop: 08/23/18 10:59 Last Admin: 06/25/18 11:13 Dose: 3 ml Furosemide (Lasix) 40 mg IVP BID [facility] Stop: 08/23/18 08:59 Last Admin: 06/25/18 09:00 Dose: Not Given Guaifenesin (Robitussin) 200 mg PO Q4HR PRN PRN Reason: Cough or Congestion Stop: 08/22/18 18:41 Multivitamins/Minerals 10 ml/Thiamine HCl 100 mg/ Magnesium Sulfate 2 gm/ Folic Acid 1 mg / Sodium Chloride 1,015.2 mls @ 100 mls/hr IV Q24H [facility] Stop: 08/23/18 08:59 Last Admin: 06/25/18 09:36 Dose: 100 mls/hr Levofloxacin (Levaquin Pb) 500 mg in 100 mls @ 100 mls/hr IV Q24HR [facility] Stop: 08/23/18 08:59 Last Infusion: 06/25/18 11:59 Dose: Infused Metronidazole (Flagyl) 500 mg in 100 mls @ 100 mls/hr IV Q8HR [facility] Stop: 08/23/18 12:59 Last Admin: 06/25/18 12:08 Dose: 100 mls/hr Norepinephrine Bitartrate 8 mg (/ Dextrose) 258 mls @ 15.48 mls/hr IV TITR PRN ; Protocol PRN Reason: BP MAINTENANCE (PER PROTOCOL) Stop: 08/23/18 15:44 Last Titration: 06/25/18 11:57 Dose: 16 mcg/min, 30.96 mls/hr Lactulose (Cephulac) 30 gm RC Q6H [facility] Stop: 08/23/18 09:59 Last Admin: 06/25/18 12:10 Dose: 30 gm Levothyroxine Sodium (Synthroid) 0.05 mg PO QDAC [facility] Stop: 08/23/18 07:29 Last Admin: 06/25/18 07:05 Dose: Not Given Methylprednisolone Sodium Succinate (Solu-Medrol) 80 mg IV Q6HR [facility] Stop: 08/23/18 17:59 Last Admin: 06/25/18 12:07 Dose: 80 mg Ondansetron HCl (Zofran) 4 mg IV Q8H PRN PRN Reason: Nausea / Vomiting Stop: 08/22/18 18:41 Pantoprazole Sodium (Protonix) 40 mg PO BID [facility] Stop: 08/23/18 08:59 Last Admin: 06/25/18 12:02 Dose: Not Given Zolpidem Tartrate (Ambien) 10 mg PO HS PRN PRN Reason: Insomnia Stop: 08/22/18 18:41 Last Admin: 06/24/18 01:13 Dose: 10 mg General: lethargic, disheveled, bilateral temporal wasting, appears older HEENT: NC/AT, PERRLA Neck: Supple Lungs: congested, rales, ronchi Cardiovascular: RRR, Normal S1, Normal S2, without murmur Abdomen: soft, globular, distended, positive bowel sound, hepatomegaly, + fluid wave Extremities: edema, excoriation Neurological: lethargic, disorganized, unable to follow command, bedbound Internal Medicine Assmt/Plan - Assessment Assessment: ASSESSMENT hyppotension, Increasing shortness of breath, acute respiratory failure, ___cirrhosis_, ascites, anemia, severe protein-calorie malnutrition, elevated amylase and lipase, and pancytopenia. - Plan Plan: PLAN: We will monitor the patient's hemoglobin and hematocrit. We will transfuse as needed. We will start the patient on diuretic. We will refer the patient to Pulmonary. We will admit the patient to ICU. The patient was refusing BiPAP, use as needed. We will continue to monitor the patient closely. for abd u/s, diagnostic and therapeutic paracentesis will give albumin
--- NOTE | 2018-06-25 14:01 | GI Progress Note ---
Subjective - Review of Systems Subjective: HAD PARACENTESIS Objective - Results Result Diagrams: 06/25/18 04:10 06/25/18 04:10 Recent Labs: Laboratory Last Values WBC 10.1 Th/cmm (4.8-10.8) D 06/25/18 04:10 RBC 3.11 Mil/cmm (4.30-5.70) L 06/25/18 04:10 Hgb 10.0 gm/dL (12-16) L 06/25/18 04:10 Hct 29.8 % (41.0-60) L 06/25/18 04:10 MCV 96.1 fl (80-99) 06/25/18 04:10 MCH 32.1 pg (26.0-30.0) H 06/25/18 04:10 MCHC Differential 33.4 pg (28.0-36.0) 06/25/18 04:10 RDW 15.0 % (11.5-20.0) 06/25/18 04:10 Plt Count 34 Th/cmm (150-400) L 06/25/18 04:10 MPV 10.1 fl 06/25/18 04:10 Add Manual Diff YES 06/25/18 04:10 Band Neutrophils % 2 % (0-10) 06/25/18 04:10 Neutrophils (Manual) 84 % (40-80) H 06/25/18 04:10 Lymphocytes 10 % (20-50) L 06/25/18 04:10 Monocytes 4 % (2-10) 06/25/18 04:10 Eosinophils 0 % (0-5) 06/24/18 07:04 Basophils 0 % (0-3) 06/24/18 07:04 Platelet Estimate DECREASED PLATELETS (NORMAL) 06/24/18 07:04 PT 16.0 SECONDS (9.5-11.5) H 06/23/18 17:00 INR 1.57 (0.5-1.4) H 06/23/18 17:00 PTT (Actin FS) 42.0 SECONDS (26.0-38.0) H 06/23/18 17:00 Specimen Source Arterial 06/25/18 09:00 Sample Site Left Radial 06/25/18 09:00 pH 7.22 (7.35-7.45) L* 06/25/18 09:00 pCO2 75.0 mmHg (35.0-45.0) H* 06/25/18 09:00 pO2 53.0 mmHg (80.0-100.0) L 06/25/18 09:00 HCO3 25.3 mEq/L (20.0-26.0) 06/25/18 09:00 Base Excess 1.1 mEq/L (-3.0-3.0) 06/25/18 09:00 O2 Saturation 79.0 % (92.0-100.0) L 06/25/18 09:00 Vasquez Test Positive 06/25/18 09:00 Vent Rate 22 06/25/18 09:00 Inspired O2 100 06/25/18 09:00 Tidal Volume 450 06/25/18 09:00 PEEP 4 06/25/18 09:00 Pressure (ins/psv/peep) NA 06/25/18 09:00 Critical Value SH 06/25/18 09:00 Sodium 135 mEq/L (136-145) L 06/25/18 04:10 Potassium 4.8 mEq/L (3.5-5.1) 06/25/18 04:10 Chloride 101 mEq/L (98-107) 06/25/18 04:10 Carbon Dioxide 25.0 mEq/L (21.0-31.0) 06/25/18 04:10 Anion Gap 13.8 (7.0-16.0) 06/25/18 04:10 BUN 36 mg/dL (7-25) H 06/25/18 04:10 Creatinine 1.0 mg/dL (0.7-1.3) 06/25/18 04:10 Est GFR ( Amer) > 60.0 ml/min (>90) 06/25/18 04:10 Est GFR (Non-Af Amer) > 60.0 ml/min 06/25/18 04:10 BUN/Creatinine Ratio 36.0 06/25/18 04:10 Glucose 79 mg/dL (70-105) 06/25/18 04:10 Whole Bld Lactic Acid 1.62 mmol/L (0.60-1.99) 06/23/18 17:00 Calcium 8.8 mg/dL (8.6-10.3) 06/25/18 04:10 Magnesium 2.5 mg/dL (1.9-2.7) 06/25/18 04:10 Total Bilirubin 2.8 mg/dL (0.3-1.0) H 06/25/18 04:10 AST 65 U/L (13-39) H 06/25/18 04:10 ALT 24 U/L (7-52) 06/25/18 04:10 Alkaline Phosphatase 86 U/L (34-104) 06/25/18 04:10 Ammonia 100 umol/L (16-53) H 06/25/18 05:00 Troponin I 0.04 ng/mL (0.01-0.05) 06/23/18 17:00 B-Natriuretic Peptide 1210.0 pg/mL (5.0-100.0) H 06/25/18 04:10 Total Protein 6.6 gm/dL (6.0-8.3) 06/25/18 04:10 Albumin 2.0 gm/dL (4.2-5.5) L 06/25/18 04:10 Globulin 4.6 gm/dL 06/25/18 04:10 Albumin/Globulin Ratio 0.4 (1.0-1.8) L 06/25/18 04:10 Amylase 125 U/L (29-103) H 06/23/18 17:00 Lipase 86 U/L (11-82) H 06/23/18 17:00 TSH 8.16 uIU/ml (0.34-5.60) H 06/23/18 17:00 Fluid Total Protein < 3.0 g/dL 06/25/18 10:00 Fluid Amylase 35 U/L 06/25/18 10:00 - Physical Exam Vitals and I&O: Vital Signs Temp 97.4 F 06/25/18 07:00 Pulse 86 06/25/18 07:00 Resp 29 06/25/18 13:22 BP 80/43 06/25/18 09:00 Pulse Ox 96 06/25/18 13:22 Intake & Output 06/24/18 06/25/18 06/25/18 18:59 06:59 18:59 Intake Total 200 1225.778 188.623 Balance 200 1225.778 188.623 Weight (lbs) 75.614 kg 75.614 kg Intake: Intake, IV Amount 200 1225.778 188.623 Levofloxacin 500mg/100mL 100 100 500 mg In 100 ml @ 100 mls/hr IV Q24HR [facility] Rx#: [id number] Multivitamin Inj 10 ml 1015.2 Thiamine HCL 100 mg Magnesium Sulfate 2 gm Folic Acid 1 mg In Sodium Chloride 0.9% 1,000 ml @ 100 mls/hr IV Q24H [facility] Rx#:[id number] Norepinephrine 8 mg In 10.578 88.623 Dextrose 5% 250 ml @ 8 MCG/MIN 15.48 mls/hr IV TITR PRN Rx#:[id number] metroNIDAZOLE 500mg/NS 100 200 100mL 500 mg In 100 ml @ 100 mls/hr IV Q8HR [facility] Rx #:[id number] Other: # Voids 1 1 Weight Source Bedscale Bedscale Active Medications: Current Medications Acetaminophen (Tylenol) 650 mg PO Q4H PRN PRN Reason: Pain Or Fever above 101 Stop: 08/22/18 18:41 Al Hydrox/Mg Hydrox/Simethicone (Maalox) 30 ml PO Q6H PRN PRN Reason: Dyspepsia Stop: 08/22/18 18:41 Last Admin: 06/24/18 01:13 Dose: 30 ml Albuterol/Ipratropium (Duoneb Neb) 3 ml HHN QIDRT [facility] Stop: 08/23/18 10:59 Last Admin: 06/25/18 11:13 Dose: 3 ml Furosemide (Lasix) 40 mg IVP BID [facility] Stop: 08/23/18 08:59 Last Admin: 06/25/18 09:00 Dose: Not Given Guaifenesin (Robitussin) 200 mg PO Q4HR PRN PRN Reason: Cough or Congestion Stop: 08/22/18 18:41 Multivitamins/Minerals 10 ml/Thiamine HCl 100 mg/ Magnesium Sulfate 2 gm/ Folic Acid 1 mg / Sodium Chloride 1,015.2 mls @ 100 mls/hr IV Q24H [facility] Stop: 08/23/18 08:59 Last Admin: 06/25/18 09:36 Dose: 100 mls/hr Levofloxacin (Levaquin Pb) 500 mg in 100 mls @ 100 mls/hr IV Q24HR [facility] Stop: 08/23/18 08:59 Last Infusion: 06/25/18 11:59 Dose: Infused Metronidazole (Flagyl) 500 mg in 100 mls @ 100 mls/hr IV Q8HR [facility] Stop: 08/23/18 12:59 Last Admin: 06/25/18 12:08 Dose: 100 mls/hr Norepinephrine Bitartrate 8 mg (/ Dextrose) 258 mls @ 15.48 mls/hr IV TITR PRN ; Protocol PRN Reason: BP MAINTENANCE (PER PROTOCOL) Stop: 08/23/18 15:44 Last Titration: 06/25/18 11:57 Dose: 16 mcg/min, 30.96 mls/hr Lactulose (Cephulac) 30 gm RC Q6H [facility] Stop: 08/23/18 09:59 Last Admin: 06/25/18 12:10 Dose: 30 gm Levothyroxine Sodium (Synthroid) 0.05 mg PO QDAC [facility] Stop: 08/23/18 07:29 Last Admin: 06/25/18 07:05 Dose: Not Given Methylprednisolone Sodium Succinate (Solu-Medrol) 80 mg IV Q6HR [facility] Stop: 08/23/18 17:59 Last Admin: 06/25/18 12:07 Dose: 80 mg Ondansetron HCl (Zofran) 4 mg IV Q8H PRN PRN Reason: Nausea / Vomiting Stop: 08/22/18 18:41 Pantoprazole Sodium (Protonix) 40 mg PO BID [facility] Stop: 08/23/18 08:59 Last Admin: 06/25/18 12:02 Dose: Not Given Zolpidem Tartrate (Ambien) 10 mg PO HS PRN PRN Reason: Insomnia Stop: 08/22/18 18:41 Last Admin: 06/24/18 01:13 Dose: 10 mg Assessment/Plan - Assessment Assessment: 57 YO MALE WITH CIRRHOSIS COMPLICATED BY ASCITES AND HYDROTHORAX S/P PARACENTESIS - 4L 1.CONT SUPP CARE 2.CONSIDER DIURETICS 3.PARACENTESIS PRN 4.CHECK AFP
[2018-06-25 14:26] LABS: BODY FLUID SOURCE PARACENTHESIS
[2018-06-25 14:27] LABS: BF APPEARANCE HAZY; BF COLOR YELLOW
[2018-06-25 14:28] LABS: BF WBC 30 /cumm
[2018-06-25 14:49] LABS: BF MACROPHAGES MODERATE; BF MESOTELIAL CELLS RARE; BF RBC 50 /cumm
[2018-06-25 14:55] LABS: BF MONOCYTES 3 %
[2018-06-25 15:08] LABS: BF LIPASE 15 U/L
[2018-06-26] MEDS: metroNIDAZOLE 500mg/NS 100mL 500 MG/100 ML BAG IV SCH ×3 (04:40→22:42)
[2018-06-26] MEDS: Lactulose 10 Gm/15 mL 30mL UDC RC SCH ×4 (04:47→22:45)
[2018-06-26] MEDS: Albuterol/Ipratropium Neb 3 ML AERS HHN SCH ×4 (07:21→19:21)
[2018-06-26] MEDS: Levothyroxine 0.05 Mg Tab PO SCH (07:38)
--- NOTE | 2018-06-26 08:10 | Diagnostic Imaging Report ---
Portable chest x-ray HISTORY: Shortness of breath Compared to prior exam of 06/17/2018, there are increasing severe diffuse bilateral pulmonary infiltrates. Evidence persistent bilateral pleural effusions. IMPRESSION: 1. Worsening pulmonary status with increasing diffuse bilateral pulmonary infiltrates along with evidence of bilateral pleural effusions.
[2018-06-26] MEDS: Levofloxacin 500mg/100mL 500 MG/100 ML BAG IV SCH (08:24)
[2018-06-26] MEDS: Multivitamin Inj 10 ML, Thiamine HCL 100 MG, Magnesium Sulfate 2 GM, Folic Acid 1 MG in... IV SCH (08:24)
[2018-06-26 08:39] LABS: ALB/GLOB RATIO 0.4 (1.0-1.8); ALBUMIN < 1.5 gm/dL (4.2-5.5); ALKALINE PHOSPHATASE 127 U/L (34-104); ANION GAP 15.6 (7.0-16.0); BILIRUBIN,TOTAL 3.1 mg/dL (0.3-1.0); BUN - UREA NITROGEN 45 mg/dL (7-25); CALCIUM SERUM 8.2 mg/dL (8.6-10.3); CARBON DIOXIDE 21.6 mEq/L (21.0-31.0); CHLORIDE 103 mEq/L (98-107); CREATININE - SERUM 1.6 mg/dL (0.7-1.3); GFR AFRICAN-AMERICAN 57.4 ml/min (>90); GFR NON AFRICAN-AMERICAN 47.4 ml/min; GLUCOSE 88 mg/dL (70-105); MAGNESIUM 3.2 mg/dL (1.9-2.7); POTASSIUM SERUM 5.2 mEq/L (3.5-5.1); SGOT 343 U/L (13-39); SGPT/ALT 75 U/L (7-52); SODIUM SERUM 135 mEq/L (136-145); TOTAL PROTEIN,SERUM 5.8 gm/dL (6.0-8.3)
[2018-06-26 09:49] LABS: pH 7.29 (7.35-7.45)
[2018-06-26 09:51] LABS: ALLEN TEST PASS
[2018-06-26] MEDS: Pantoprazole 40 mg EC Tab PO SCH (11:01)
--- NOTE | 2018-06-26 12:50 | Internal Medicine Prog Note ---
Internal Medicine Subjective - Subjective Patient seen and examined:: with staff, chart reviewed, other (bp low, dopamine added) Patient is:: asleep, non-interactive, eyes closed, in bed, confused, congested Patient Complaints of:: bloated, weight gain Per staff patient has:: poor oral intake, agitated, noncompliant, confused, other (ngt) Internal Medicine Objective - Results Result Diagrams: 06/25/18 04:10 06/26/18 07:45 Recent Labs: Laboratory Last Values WBC 10.1 Th/cmm (4.8-10.8) D 06/25/18 04:10 RBC 3.11 Mil/cmm (4.30-5.70) L 06/25/18 04:10 Hgb 10.0 gm/dL (12-16) L 06/25/18 04:10 Hct 29.8 % (41.0-60) L 06/25/18 04:10 MCV 96.1 fl (80-99) 06/25/18 04:10 MCH 32.1 pg (26.0-30.0) H 06/25/18 04:10 MCHC Differential 33.4 pg (28.0-36.0) 06/25/18 04:10 RDW 15.0 % (11.5-20.0) 06/25/18 04:10 Plt Count 34 Th/cmm (150-400) L 06/25/18 04:10 MPV 10.1 fl 06/25/18 04:10 Add Manual Diff YES 06/25/18 04:10 Band Neutrophils % 2 % (0-10) 06/25/18 04:10 Neutrophils (Manual) 84 % (40-80) H 06/25/18 04:10 Lymphocytes 10 % (20-50) L 06/25/18 04:10 Monocytes 4 % (2-10) 06/25/18 04:10 Eosinophils 0 % (0-5) 06/24/18 07:04 Basophils 0 % (0-3) 06/24/18 07:04 Platelet Estimate DECREASED PLATELETS (NORMAL) 06/24/18 07:04 PT 16.0 SECONDS (9.5-11.5) H 06/23/18 17:00 INR 1.57 (0.5-1.4) H 06/23/18 17:00 PTT (Actin FS) 42.0 SECONDS (26.0-38.0) H 06/23/18 17:00 Specimen Source Arterial 06/26/18 09:37 Sample Site Right Radial 06/26/18 09:37 pH 7.29 (7.35-7.45) L 06/26/18 09:37 pCO2 58.0 mmHg (35.0-45.0) H* 06/26/18 09:37 pO2 47.0 mmHg (80.0-100.0) L* 06/26/18 09:37 HCO3 24.6 mEq/L (20.0-26.0) 06/26/18 09:37 Base Excess 0.2 mEq/L (-3.0-3.0) 06/26/18 09:37 O2 Saturation 77.0 % (92.0-100.0) L 06/26/18 09:37 Vasquez Test PASS 06/26/18 09:37 Vent Rate 26 06/26/18 09:37 Inspired O2 100 06/26/18 09:37 Tidal Volume 550 06/26/18 09:37 PEEP 4 06/25/18 09:00 Pressure (ins/psv/peep) NA 06/25/18 09:00 Critical Value PW 06/26/18 09:37 Sodium 135 mEq/L (136-145) L 06/26/18 07:45 Potassium 5.2 mEq/L (3.5-5.1) H 06/26/18 07:45 Chloride 103 mEq/L (98-107) 06/26/18 07:45 Carbon Dioxide 21.6 mEq/L (21.0-31.0) 06/26/18 07:45 Anion Gap 15.6 (7.0-16.0) 06/26/18 07:45 BUN 45 mg/dL (7-25) H 06/26/18 07:45 Creatinine 1.6 mg/dL (0.7-1.3) H 06/26/18 07:45 Est GFR ( Amer) 57.4 ml/min (>90) 06/26/18 07:45 Est GFR (Non-Af Amer) 47.4 ml/min 06/26/18 07:45 BUN/Creatinine Ratio 28.1 06/26/18 07:45 Glucose 88 mg/dL (70-105) 06/26/18 07:45 Whole Bld Lactic Acid 1.62 mmol/L (0.60-1.99) 06/23/18 17:00 Calcium 8.2 mg/dL (8.6-10.3) L 06/26/18 07:45 Magnesium 3.2 mg/dL (1.9-2.7) H 06/26/18 07:45 Total Bilirubin 3.1 mg/dL (0.3-1.0) H 06/26/18 07:45 AST 343 U/L (13-39) H 06/26/18 07:45 ALT 75 U/L (7-52) H 06/26/18 07:45 Alkaline Phosphatase 127 U/L (34-104) H 06/26/18 07:45 Ammonia 100 umol/L (16-53) H 06/25/18 05:00 Troponin I 0.04 ng/mL (0.01-0.05) 06/23/18 17:00 B-Natriuretic Peptide 1210.0 pg/mL (5.0-100.0) H 06/25/18 04:10 Total Protein 5.8 gm/dL (6.0-8.3) L 06/26/18 07:45 Albumin < 1.5 gm/dL (4.2-5.5) L 06/26/18 07:45 Globulin 4.3 gm/dL 06/26/18 07:45 Albumin/Globulin Ratio 0.4 (1.0-1.8) L 06/26/18 07:45 Amylase 125 U/L (29-103) H 06/23/18 17:00 Lipase 86 U/L (11-82) H 06/23/18 17:00 Vitamin B12 >1999 pg/mL (232-1245) H 06/25/18 04:10 Folic Acid 14.0 ng/mL (>3.0) 06/25/18 04:10 TSH 8.16 uIU/ml (0.34-5.60) H 06/23/18 17:00 Fluid Source PARACENTHESIS 06/25/18 10:00 Fluid Color YELLOW 06/25/18 10:00 Fluid Appearance HAZY 06/25/18 10:00 Fluid WBC 30 /cumm 06/25/18 10:00 Fluid RBC 50 /cumm 06/25/18 10:00 Fluid Neutrophils 40 % 06/25/18 10:00 Fluid Lymphocytes 57 % 06/25/18 10:00 Fluid Monocytes 3 % 06/25/18 10:00 Fluid Macrophages MODERATE 06/25/18 10:00 Fld Mesothelial Cells RARE 06/25/18 10:00 Fluid Total Protein < 3.0 g/dL 06/25/18 10:00 Fluid Amylase 35 U/L 06/25/18 10:00 Fluid Lipase 15 U/L 06/25/18 10:00 - Physical Exam Vitals and I&O: Vital Signs Temp 97.0 F 06/26/18 06:00 Pulse 104 06/26/18 07:45 Resp 31 06/26/18 11:08 BP 81/34 06/26/18 11:02 Pulse Ox 94 06/26/18 11:08 Intake & Output 06/25/18 06/26/18 06/26/18 18:59 06:59 18:59 Intake Total 349.674 7331.708 100 Output Total 4000 0 Balance 310.915 -1740.292 100 Weight (lbs) 75.614 kg 62.596 kg 63.503 kg Intake: Intake, IV Amount 533.979 7643.708 100 Levofloxacin 500mg/100mL 100 100 500 mg In 100 ml @ 100 mls/hr IV Q24HR [facility] Rx#: [id number] Multivitamin Inj 10 ml 1015.2 Thiamine HCL 100 mg Magnesium Sulfate 2 gm Folic Acid 1 mg In Sodium Chloride 0.9% 1,000 ml @ 100 mls/hr IV Q24H [facility] Rx#:[id number] Norepinephrine 8 mg In 210.915 548.508 Dextrose 5% 250 ml @ 8 MCG/MIN 15.48 mls/hr IV TITR PRN Rx#:[id number] metroNIDAZOLE 500mg/NS 300 100mL 500 mg In 100 ml @ 100 mls/hr IV Q8HR [facility] Rx #:[id number] Oral 0 Other 396 Output: Urine 0 0 Other 4000 Other: # Voids 1 0 # Bowel Movements 0 Weight Source Bedscale Bedscale Bedscale Active Medications: Current Medications Acetaminophen (Tylenol) 650 mg PO Q4H PRN PRN Reason: Pain Or Fever above 101 Stop: 08/22/18 18:41 Al Hydrox/Mg Hydrox/Simethicone (Maalox) 30 ml PO Q6H PRN PRN Reason: Dyspepsia Stop: 08/22/18 18:41 Last Admin: 06/24/18 01:13 Dose: 30 ml Albuterol/Ipratropium (Duoneb Neb) 3 ml HHN QIDRT [facility] Stop: 08/23/18 10:59 Last Admin: 06/26/18 11:08 Dose: 3 ml Guaifenesin (Robitussin) 200 mg PO Q4HR PRN PRN Reason: Cough or Congestion Stop: 08/22/18 18:41 Multivitamins/Minerals 10 ml/Thiamine HCl 100 mg/ Magnesium Sulfate 2 gm/ Folic Acid 1 mg / Sodium Chloride 1,015.2 mls @ 100 mls/hr IV Q24H [facility] Stop: 08/23/18 08:59 Last Admin: 06/26/18 08:24 Dose: 100 mls/hr Metronidazole (Flagyl) 500 mg in 100 mls @ 100 mls/hr IV Q8HR [facility] Stop: 08/23/18 12:59 Last Infusion: 06/26/18 05:40 Dose: Infused Norepinephrine Bitartrate 8 mg (/ Dextrose) 258 mls @ 15.48 mls/hr IV TITR PRN ; Protocol PRN Reason: BP MAINTENANCE (PER PROTOCOL) Stop: 08/23/18 15:44 Last Titration: 06/26/18 05:15 Dose: 30 mcg/min, 58.05 mls/hr Piperacillin Sod/Tazobactam (Sod 4.5 gm/ Sodium Chloride) 100 mls @ 100 mls/hr IV Q8HR [facility] Stop: 08/25/18 12:59 Lactulose (Cephulac) 30 gm RC Q6H [facility] Stop: 08/23/18 09:59 Last Admin: 06/26/18 11:01 Dose: 30 gm Levothyroxine Sodium (Synthroid) 0.05 mg PO QDAC [facility] Stop: 08/23/18 07:29 Last Admin: 06/26/18 07:38 Dose: Not Given Methylprednisolone Sodium Succinate (Solu-Medrol) 40 mg IV Q6HR [facility] Stop: 08/25/18 00:00 Last Admin: 06/26/18 11:09 Dose: 40 mg Ondansetron HCl (Zofran) 4 mg IV Q8H PRN PRN Reason: Nausea / Vomiting Stop: 08/22/18 18:41 Pantoprazole Sodium (Protonix) 40 mg IVP BID [facility] Stop: 08/25/18 20:59 Zolpidem Tartrate (Ambien) 10 mg PO HS PRN PRN Reason: Insomnia Stop: 08/22/18 18:41 Last Admin: 06/24/18 01:13 Dose: 10 mg General: lethargic, disheveled, bilateral temporal wasting, appears older HEENT: NC/AT, PERRLA Neck: Supple Lungs: congested, rales, ronchi Cardiovascular: RRR, Normal S1, Normal S2, without murmur Abdomen: soft, globular, distended, positive bowel sound, hepatomegaly, + fluid wave Extremities: edema, excoriation Neurological: lethargic, disorganized, unable to follow command, bedbound Internal Medicine Assmt/Plan - Assessment Assessment: ASSESSMENT hyppotension, Increasing shortness of breath, acute respiratory failure, ___cirrhosis_, ascites, anemia, severe protein-calorie malnutrition, elevated amylase and lipase, and pancytopenia. - Plan Plan: PLAN: We will monitor the patient's hemoglobin and hematocrit. We will transfuse as needed. We will start the patient on diuretic. We will refer the patient to Pulmonary. We will admit the patient to ICU. The patient was refusing BiPAP, use as needed. We will continue to monitor the patient closely. for abd u/s, diagnostic and therapeutic paracentesis will give albumin apparently pt came in initially alert and oriented, dr crenshaw discussed code status w pt and requested dnr and signed form poor prognosis
--- NOTE | 2018-06-26 13:58 | GI Progress Note ---
Subjective - Review of Systems Subjective: ON BIPAP PT IS DNR Objective - Results Result Diagrams: 06/25/18 04:10 06/26/18 07:45 Recent Labs: Laboratory Last Values WBC 10.1 Th/cmm (4.8-10.8) D 06/25/18 04:10 RBC 3.11 Mil/cmm (4.30-5.70) L 06/25/18 04:10 Hgb 10.0 gm/dL (12-16) L 06/25/18 04:10 Hct 29.8 % (41.0-60) L 06/25/18 04:10 MCV 96.1 fl (80-99) 06/25/18 04:10 MCH 32.1 pg (26.0-30.0) H 06/25/18 04:10 MCHC Differential 33.4 pg (28.0-36.0) 06/25/18 04:10 RDW 15.0 % (11.5-20.0) 06/25/18 04:10 Plt Count 34 Th/cmm (150-400) L 06/25/18 04:10 MPV 10.1 fl 06/25/18 04:10 Add Manual Diff YES 06/25/18 04:10 Band Neutrophils % 2 % (0-10) 06/25/18 04:10 Neutrophils (Manual) 84 % (40-80) H 06/25/18 04:10 Lymphocytes 10 % (20-50) L 06/25/18 04:10 Monocytes 4 % (2-10) 06/25/18 04:10 Eosinophils 0 % (0-5) 06/24/18 07:04 Basophils 0 % (0-3) 06/24/18 07:04 Platelet Estimate DECREASED PLATELETS (NORMAL) 06/24/18 07:04 PT 16.0 SECONDS (9.5-11.5) H 06/23/18 17:00 INR 1.57 (0.5-1.4) H 06/23/18 17:00 PTT (Actin FS) 42.0 SECONDS (26.0-38.0) H 06/23/18 17:00 Specimen Source Arterial 06/26/18 09:37 Sample Site Right Radial 06/26/18 09:37 pH 7.29 (7.35-7.45) L 06/26/18 09:37 pCO2 58.0 mmHg (35.0-45.0) H* 06/26/18 09:37 pO2 47.0 mmHg (80.0-100.0) L* 06/26/18 09:37 HCO3 24.6 mEq/L (20.0-26.0) 06/26/18 09:37 Base Excess 0.2 mEq/L (-3.0-3.0) 06/26/18 09:37 O2 Saturation 77.0 % (92.0-100.0) L 06/26/18 09:37 Vasquez Test PASS 06/26/18 09:37 Vent Rate 26 06/26/18 09:37 Inspired O2 100 06/26/18 09:37 Tidal Volume 550 06/26/18 09:37 PEEP 4 06/25/18 09:00 Pressure (ins/psv/peep) NA 06/25/18 09:00 Critical Value PW 06/26/18 09:37 Sodium 135 mEq/L (136-145) L 06/26/18 07:45 Potassium 5.2 mEq/L (3.5-5.1) H 06/26/18 07:45 Chloride 103 mEq/L (98-107) 06/26/18 07:45 Carbon Dioxide 21.6 mEq/L (21.0-31.0) 06/26/18 07:45 Anion Gap 15.6 (7.0-16.0) 06/26/18 07:45 BUN 45 mg/dL (7-25) H 06/26/18 07:45 Creatinine 1.6 mg/dL (0.7-1.3) H 06/26/18 07:45 Est GFR ( Amer) 57.4 ml/min (>90) 06/26/18 07:45 Est GFR (Non-Af Amer) 47.4 ml/min 06/26/18 07:45 BUN/Creatinine Ratio 28.1 06/26/18 07:45 Glucose 88 mg/dL (70-105) 06/26/18 07:45 Whole Bld Lactic Acid 1.62 mmol/L (0.60-1.99) 06/23/18 17:00 Calcium 8.2 mg/dL (8.6-10.3) L 06/26/18 07:45 Magnesium 3.2 mg/dL (1.9-2.7) H 06/26/18 07:45 Total Bilirubin 3.1 mg/dL (0.3-1.0) H 06/26/18 07:45 AST 343 U/L (13-39) H 06/26/18 07:45 ALT 75 U/L (7-52) H 06/26/18 07:45 Alkaline Phosphatase 127 U/L (34-104) H 06/26/18 07:45 Ammonia 100 umol/L (16-53) H 06/25/18 05:00 Troponin I 0.04 ng/mL (0.01-0.05) 06/23/18 17:00 B-Natriuretic Peptide 1210.0 pg/mL (5.0-100.0) H 06/25/18 04:10 Total Protein 5.8 gm/dL (6.0-8.3) L 06/26/18 07:45 Albumin < 1.5 gm/dL (4.2-5.5) L 06/26/18 07:45 Globulin 4.3 gm/dL 06/26/18 07:45 Albumin/Globulin Ratio 0.4 (1.0-1.8) L 06/26/18 07:45 Amylase 125 U/L (29-103) H 06/23/18 17:00 Lipase 86 U/L (11-82) H 06/23/18 17:00 Vitamin B12 >1999 pg/mL (232-1245) H 06/25/18 04:10 Folic Acid 14.0 ng/mL (>3.0) 06/25/18 04:10 TSH 8.16 uIU/ml (0.34-5.60) H 06/23/18 17:00 Fluid Source PARACENTHESIS 06/25/18 10:00 Fluid Color YELLOW 06/25/18 10:00 Fluid Appearance HAZY 06/25/18 10:00 Fluid WBC 30 /cumm 06/25/18 10:00 Fluid RBC 50 /cumm 06/25/18 10:00 Fluid Neutrophils 40 % 06/25/18 10:00 Fluid Lymphocytes 57 % 06/25/18 10:00 Fluid Monocytes 3 % 06/25/18 10:00 Fluid Macrophages MODERATE 06/25/18 10:00 Fld Mesothelial Cells RARE 06/25/18 10:00 Fluid Total Protein < 3.0 g/dL 06/25/18 10:00 Fluid Amylase 35 U/L 06/25/18 10:00 Fluid Lipase 15 U/L 06/25/18 10:00 - Physical Exam Vitals and I&O: Vital Signs Temp 96.9 F 06/26/18 08:00 Pulse 103 06/26/18 08:00 Resp 28 06/26/18 13:24 BP 81/34 06/26/18 11:02 Pulse Ox 96 06/26/18 13:24 Intake & Output 06/25/18 06/26/18 06/26/18 18:59 06:59 18:59 Intake Total 102.550 9860.708 100 Output Total 4000 0 Balance 310.915 -1740.292 100 Weight (lbs) 75.614 kg 62.596 kg 63.503 kg Intake: Intake, IV Amount 460.048 4584.708 100 Levofloxacin 500mg/100mL 100 100 500 mg In 100 ml @ 100 mls/hr IV Q24HR [facility] Rx#: [id number] Multivitamin Inj 10 ml 1015.2 Thiamine HCL 100 mg Magnesium Sulfate 2 gm Folic Acid 1 mg In Sodium Chloride 0.9% 1,000 ml @ 100 mls/hr IV Q24H [facility] Rx#:[id number] Norepinephrine 8 mg In 210.915 548.508 Dextrose 5% 250 ml @ 8 MCG/MIN 15.48 mls/hr IV TITR PRN Rx#:[id number] metroNIDAZOLE 500mg/NS 300 100mL 500 mg In 100 ml @ 100 mls/hr IV Q8HR [facility] Rx #:[id number] Oral 0 Other 396 Output: Urine 0 0 Other 4000 Other: # Voids 1 0 # Bowel Movements 0 Weight Source Bedscale Bedscale Bedscale Active Medications: Current Medications Acetaminophen (Tylenol) 650 mg PO Q4H PRN PRN Reason: Pain Or Fever above 101 Stop: 08/22/18 18:41 Al Hydrox/Mg Hydrox/Simethicone (Maalox) 30 ml PO Q6H PRN PRN Reason: Dyspepsia Stop: 08/22/18 18:41 Last Admin: 06/24/18 01:13 Dose: 30 ml Albuterol/Ipratropium (Duoneb Neb) 3 ml HHN QIDRT [facility] Stop: 08/23/18 10:59 Last Admin: 06/26/18 11:08 Dose: 3 ml Guaifenesin (Robitussin) 200 mg PO Q4HR PRN PRN Reason: Cough or Congestion Stop: 08/22/18 18:41 Multivitamins/Minerals 10 ml/Thiamine HCl 100 mg/ Magnesium Sulfate 2 gm/ Folic Acid 1 mg / Sodium Chloride 1,015.2 mls @ 100 mls/hr IV Q24H [facility] Stop: 08/23/18 08:59 Last Admin: 06/26/18 08:24 Dose: 100 mls/hr Metronidazole (Flagyl) 500 mg in 100 mls @ 100 mls/hr IV Q8HR [facility] Stop: 08/23/18 12:59 Last Infusion: 06/26/18 05:40 Dose: Infused Norepinephrine Bitartrate 8 mg (/ Dextrose) 258 mls @ 15.48 mls/hr IV TITR PRN ; Protocol PRN Reason: BP MAINTENANCE (PER PROTOCOL) Stop: 08/23/18 15:44 Last Titration: 06/26/18 05:15 Dose: 30 mcg/min, 58.05 mls/hr Piperacillin Sod/Tazobactam (Sod 4.5 gm/ Sodium Chloride) 100 mls @ 100 mls/hr IV Q8HR [facility] Stop: 08/25/18 12:59 Lactulose (Cephulac) 30 gm RC Q6H [facility] Stop: 08/23/18 09:59 Last Admin: 06/26/18 11:01 Dose: 30 gm Levothyroxine Sodium (Synthroid) 0.05 mg PO QDAC [facility] Stop: 08/23/18 07:29 Last Admin: 06/26/18 07:38 Dose: Not Given Methylprednisolone Sodium Succinate (Solu-Medrol) 40 mg IV Q6HR [facility] Stop: 08/25/18 00:00 Last Admin: 06/26/18 11:09 Dose: 40 mg Ondansetron HCl (Zofran) 4 mg IV Q8H PRN PRN Reason: Nausea / Vomiting Stop: 08/22/18 18:41 Pantoprazole Sodium (Protonix) 40 mg IVP BID [facility] Stop: 08/25/18 20:59 Zolpidem Tartrate (Ambien) 10 mg PO HS PRN PRN Reason: Insomnia Stop: 08/22/18 18:41 Last Admin: 06/24/18 01:13 Dose: 10 mg Assessment/Plan - Assessment Assessment: 57 YO MALE WITH CIRRHOSIS COMPLICATED BY ASCITES AND HYDROTHORAX S/P PARACENTESIS - 4L HAS HYPOTENSION AND RESP FAILURE 1.CONT SUPP CARE 2.CONSIDER DIURETICS 3.PARACENTESIS PRN 4.CHECK AFP 5.POOR PROGNOSIS
[2018-06-26 14:08] LABS: MEAN CELL VOLUME 96.1 fl (80-99); MEAN CORPUSCULAR HEMOGLOBIN 31.9 pg (26.0-30.0); MEAN CORPUSCULAR HGB CONC 33.2 pg (28.0-36.0); MEAN PLATELET VOLUME 10.2 fl; RED BLOOD COUNT 3.12 Mil/cmm (4.30-5.70); RED CELL DISTRIBUTION WIDTH 15.2 % (11.5-20.0); WHITE BLOOD COUNT 5.4 Th/cmm (4.8-10.8)
[2018-06-26 14:13] LABS: HEP A AB IGM Negative (Negative); HEP B CORE IGM Negative (Negative); HEP B SURFACE AG QL Negative (Negative); HEP C ANTIBODY 0.2 s/co ratio (0.0-0.9)
[2018-06-26 14:47] LABS: PLATELET COUNT 22 Th/cmm (150-400)
[2018-06-26] MEDS: DOPamine 400 MG/250 ML BAG IV PRN ×2 (14:57→23:21)
[2018-06-26 15:31] LABS: BAND NEUTROPHILE 0 % (0-10); BASOPHIL 0 % (0-3); EOSINOPHIL 0 % (0-5); LYMPHOCYTE 9 % (20-50); MONOCYTE 4 % (2-10); NEUTROPHILS 87 % (40-80)
[2018-06-26 15:32] LABS: PLATELET ESTIMATE DECREASED PLATELETS (NORMAL)
[2018-06-26] MEDS ORDERED: Albumin 25% 25gm/100mL 25 GM/100 ML BTL IV SCH (21:00)
--- NOTE | 2018-06-27 00:14 | Consultation ---
DATE OF CONSULTATION: 06/26/2018 ATTENDING PHYSICIAN: Dr. Sorensen. REASON FOR CONSULTATION: Worsening kidney function, electrolyte imbalance, fluid management. HISTORY OF PRESENT ILLNESS: This is a 57-year-old male with past medical history of alcohol liver cirrhosis, who came in because of respiratory distress. CT scan of the abdomen/pelvis revealed massive ascites, liver cirrhosis with bilateral pleural effusions. He underwent paracentesis and approximately 4 meters was obtained. His respiratory status gradually improved. However, he had again a decompensation of his liver cirrhosis. Chest x-ray now showed increasing bilateral pulmonary infiltrates with effusions. He suddenly became hypotensive, and was transferred to ICU. He was started on Levophed followed by dopamine drip to support his blood pressure. He initially refused, but now agreed to have a BiPAP. His diuretics were then discontinued due to his hypotension. He was maintained on Zosyn. His BUN/creatinine on admission were 28/0.6. His BUN/creatinine today were 45/1.6. He is now anuric. PAST MEDICAL HISTORY: 1. Alcohol liver cirrhosis. 2. Alcohol abuse. 3. Essential hypertension. 4. Chronic ascites. 5. Chronic anasarca. 6. History of hypercapnic respiratory failure. CURRENT MEDICATIONS: He is currently on acetaminophen, albumin with ipratropium, clonidine, dopamine, Levaquin, lactulose, levothyroxine, methylprednisolone, pantoprazole, zolpidem, Zosyn. ALLERGIES: No known drug allergies. SOCIAL AND FAMILY HISTORY: I was not able to obtain from the patient because he remains nonverbal on BiPAP. REVIEW OF SYSTEMS: Again, I was not able to decipher directly from the patient because of the same reason. PHYSICAL EXAMINATION: GENERAL: The patient is very obtunded, on a BiPAP, tachypneic. VITAL SIGNS: Blood pressure is 90/56, pulse 108, afebrile. SKIN: Poor turgor, warm, no rash, no jaundice appreciated. HEENT: Head normocephalic, atraumatic. EYES, NOSE AND MOUTH: Unable to assess due to his BiPAP mask. NECK: Supple, no adenopathy, no thyromegaly, no bruits. Trachea palpated in the midline. CHEST AND CARDIOVASCULAR: Tachycardic, S1, S2. No rub, murmur, nor gallop appreciated. Point of maximal impulse fifth intercostal space, left midclavicular line. No abdominal or femoral bruits appreciated. LUNGS: Equal expansion. Minimal use of accessory muscles. Increased supraclavicular retractions. Coarse rhonchi with rales, but no wheezes appreciated. ABDOMEN: Presence of shifting dullness, mildly soft, diminished bowel sounds. No tenderness on deep palpation, no muscle guarding, no rebound. No bruits either diastolic or systolic. RECTAL: Unable to perform due to the patient's condition and position. GENITOURINARY: Normal appearing male genitalia. MUSCULOSKELETAL: No effusions present in his joints, but unable to assess his range of motion. EXTREMITIES: He has +4 peripheral pitting edema, he has a palpable femoral, but unable to fully appreciate popliteal and dorsalis pedis pulses due to his edema, no cyanosis nor clubbing appreciated. NEUROLOGIC: The patient currently obtunded, unable to perform my neuro exam. LABORATORY DATA: Revealed sodium 135, potassium 5.2, chloride 103, bicarbonate 21, BUN 45, creatinine 1.6, glucose 88, calcium 8.2, ammonia is 100. BNP 1210, albumin less than 1.5. IMPRESSION: 1. Anuric acute kidney injury, MDRD GFR of 57 mL per minute. The patient currently has decompensation of his liver function. Thus, there is an increase in splanchnic vasodilation which would decrease peripheral circulation. Due to this he has developed worsening anasarca. He also has increased hepatic congestion, increasing portal hypertension and worsening his ascites. The combination of these events can lead to worsening of his prerenal azotemia and may progress to acute kidney injury. However, we also need to consider as a diagnosis of exclusion hepatorenal syndrome. 2. Acute decompensation of alcohol liver cirrhosis. 3. Hypercapnic respiratory failure, on BiPAP. 4. Bilateral pulmonary edema. 5. Alcohol abuse. 6. History of hypotension. 7. History of hypertension. 8. Hypovolemic shock. PLAN: 1. Continue on with pressors. 2. Albumin infusion to improve intravascular volume. 3. Gentle hydration. 4. Urinalysis. 5. Urine spot sodium, eosinophils, and creatinine. 6. Urine microalbumin to creatinine ratio. The patient has a very poor prognosis. He currently has a DNR status. JOB# [id number]
--- NOTE | 2018-06-27 13:10 | Discharge Summary ---
DATE OF DISCHARGE: 06/27/2018 CHIEF COMPLAINT: Shortness of breath. FINAL DIAGNOSES: The patient of acute respiratory failure, alcoholic cirrhosis, ascites, anemia, pancytopenia, and malnutrition. HISTORY: This was a 57-year-old male with history of hypertension, alcohol abuse, cirrhosis, admitted from home secondary to respiratory distress. The patient apparently made himself DNR and placed on BiPAP, admitted to ICU. HOSPITAL COURSE: The patient was admitted to ICU. Continued on oxygen ____ treatment. The patient was referred to Dr. Gilbert for Pulmonary, Dr. Munson for Gastroenterology, Dr. Hong for Renal. The patient apparently was alert and oriented when she came in and Dr. Rashid, the ER physician talked to the patient and the patient wanted DNR. The patient's condition continued to deteriorate. The patient had thoracentesis. They took out close to 4 liters. The patient continued to deteriorate and on 06/27/2017. CONDITION ON DISCHARGE: The patient . DISCHARGE INSTRUCTIONS: The patient . JOB# [id number]
== END 2018-06-27 03:55 | disposition expired | DRG 189 ==
LOC: ER 16:25 → ICU 18:33
PROVIDERS: ADMIT Internal Medicine; ATTEND Internal Medicine
PROC: 5A09357 Assistance with Respiratory Ventilation, Less than 24 Consecutive Hours, Continuous Positive Airway Pressure (ICD-10-PCS; principal; 2018-06-24)
PROC: 5A09357 Assistance with Respiratory Ventilation, Less than 24 Consecutive Hours, Continuous Positive Airway Pressure (ICD-10-PCS; 2018-06-25)
PROC: 0W9G3ZZ Drainage of Peritoneal Cavity, Percutaneous Approach (ICD-10-PCS; 2018-06-25)
PROC: 5A09357 Assistance with Respiratory Ventilation, Less than 24 Consecutive Hours, Continuous Positive Airway Pressure (ICD-10-PCS; 2018-06-26)
PROC: 5A09357 Assistance with Respiratory Ventilation, Less than 24 Consecutive Hours, Continuous Positive Airway Pressure (ICD-10-PCS; 2018-06-27)
DX: J96.02 Acute respiratory failure with hypercapnia (principal); E43 Unspecified severe protein-calorie malnutrition; D61.818 Other pancytopenia; J44.1 Chronic obstructive pulmonary disease with (acute) exacerbation; J94.8 Other specified pleural conditions; J90 Pleural effusion, not elsewhere classified; N17.9 Acute kidney failure, unspecified; K76.6 Portal hypertension; K72.90 Hepatic failure, unspecified without coma; I10 Essential (primary) hypertension; D64.9 Anemia, unspecified; K70.31 Alcoholic cirrhosis of liver with ascites; I95.9 Hypotension, unspecified; Z66 Do not resuscitate; R57.1 Hypovolemic shock; Z68.28 Body mass index [BMI] 28.0-28.9, adult
CPT/HCPCS: 36415-UA; 36600-90; 71045-TC; 76700-TC; 76942-TC; 80048-TC; 80053-TC; 80074-90; 82042-TC; 82105-90; 82140-TC; 82150-TC; 82607-90; 82746-90; 82803-TC; 83605; 83690-TC; 83735-TC; 83880-TC; 84157-TC; 84443-TC; 84484-TC; 85007-TC; 85025-TC; 85610-TC; 85730-TC; 89051-TC; 90779; 90799; 93005; 94640; 94660; 96374; A4217; C9113; J1265; J1940; J1956; J2543; J2930; J3411; J3475; J7030; J7070; J7613; P9046; X6452; X6598; Z7610